=== PATIENT | male | born 1990 | race Caucasian/White ===

== ENCOUNTER 2019-04-29 12:31 | Inpatient (IN) | payer OTHER ==
[2019-04-29 18:00] VITALS: BMI 21.1
--- NOTE | 2019-04-29 19:59 | HP ---
"CIWA Score - Admission Criteria OASAS Guidelines: Admission for Medically Managed Detox: Requires at least one of the followin. CIWA greater than 12 2. Seizures within the past 24 hours 3. Delirium tremens within the past 24 hours 4. Hallucinations within the past 24 hours 5. Acute intervention needed for co occurring medical disorder 6. Acute intervention needed for co occurring psychiatric disorder 7. Severe withdrawal that cannot be handled at a lower level of care (continued vomiting, continued diarrhea, abnormal vital signs) requiring intravenous medication and/or fluids 8. Admission ROS [facility] Chief Complaint: Patient states here for rehab. Allergies/Adverse Reactions: Allergies Allergy/AdvReac Type Severity Reaction Status Date / Time No Known Allergies Allergy Verified 04/29/19 17:48 History of Present Illness: 28 yo presents post detox @ [facility], for admission to rehab. Hx Anxiolytic use disorder. Was prescribed Klonopin at age 17. Started illegal Xanax use a few months ago. Last used 2 weekas ago. Denies alcohol use. Heroin use began at age 23. IVDU. Currently on [facility]. Current dose: Methadone 115 mg PO Daily. Last medicated today. PPD @ [facility] - please call and obtain date and results. Nicotine use currently via Vaping. Use to smoke 1/2 PPD before switchinh to vaping. PMHx: Epilepsy (Non-drug related last seizure -years ago) - not on meds; Asperger's Syndrome MHHx: Anxiety. Insomnia (Rx'd w/ Remeron). Denies depression. Denies thoughts of harming self or others. Patient Name: Juan Carlos Tao Date: 1990 Address: [place] [address] Sex: Male Rx Written Rx Dispensed Drug Quantity Days Supply Prescriber Name 04/20/2019 04/21/2019 chlordiazepoxide 25 mg capsule 8 2 Ross Nevarez Patient Name: Juan Carlos Tao Date: 1990 Address: [address] [place], [place] [id number] [address] Sex: Male Rx Written Rx Dispensed Drug Quantity Days Supply Prescriber Name 12/22/2018 12/22/2018 oxycodone-acetaminophen 5-325 mg tablet 15 3 [facility] 06/26/2018 06/29/2018 clonazepam 1 mg tablet 5 5 Rachael Ramey MD Patient Name: Juan Carlos Tao Date: 1990 Address: [place] [address] Sex: Male Rx Written Rx Dispensed Drug Quantity Days Supply Prescriber Name 09/22/2018 09/22/2018 clonazepam 2 mg tablet 3 1 Silvino Whitehead MD Patient Name: Juan Carlos Tao Date: 1990 Address: [address] [place] [address] Sex: Male Rx Written Rx Dispensed Drug Quantity Days Supply Prescriber Name 09/14/2018 09/14/2018 clonazepam 1 mg tablet 30 30 Saker, Armaan, T 08/16/2018 08/16/2018 clonazepam 1 mg tablet 30 30 Saker, Armaan, T 07/14/2018 07/14/2018 clonazepam 1 mg tablet 30 30 Saker, Armaan, T 06/14/2018 06/14/2018 clonazepam 1 mg tablet 30 30 Saker, Armaan, T 05/17/2018 05/17/2018 clonazepam 1 mg tablet 30 30 Saker, Armaan, T 05/03/2018 05/03/2018 clonazepam 1 mg tablet 14 14 Saker, Armaan, T Search Terms: Juan Carlos Tao, 1990 Search Date: 04/29/2019 07:59:17 PM States Searched: [place], [place], [place], [place], [place], [place], [place] The Drug Utilization Report below displays the controlled substance prescriptions, if any, that were dispensed in the indicated state(s). The information displayed on this report is compiled from requests submitted to other states' PMPs, and accurately reflects the information as returned by them. Blank hall indicate data not provided by other state. This report was requested by: Alfreda Mosquera | Reference #: [id number] Exam Limitations: No Limitations - Ebola screening Have you traveled outside of the country in the last 21 days: No Have you had contact with anyone from an Ebola affected area: No Have you been sick,other than usual withdrawal symptoms: No (Denies recent exposure to measles) Do you have a fever: No - Review of Systems Constitutional: Changes in sleep (Difficulty falling and staying asleep) EENT: reports: Blurred Vision, Dental Problems (No teeth. Chews and swallow ok.) Respiratory: reports: No Symptoms reported Cardiac: reports: No Symptoms Reported GI: reports: Constipated (Last BM - 2 days ago. Occ bright streaks of blood.) : reports: No Symptoms Reported Musculoskeletal: reports: No Symptoms Reported Integumentary: reports: No Symptoms Reported Neuro: reports: Tremors (Mild) Endocrine: reports: Increased Thirst Hematology: reports: No Symptoms Reported Psychiatric: reports: Judgement Intact, Mood/Affect Appropiate, Orientated x3, Anxious Patient History - PPD History Previous Implant?: Yes Documented Results: Negative w/proof Implanted On Prior R Admission?: No PPD to be Administered?: No - Smoking Cessation Smoking history: Current every day smoker Have you smoked in the past 12 months: Yes Aproximately how many cigarettes per day: 10 (Vapes - unsure exact amount) Hx Chewing Tobacco Use: No Initiated information on smoking cessation: Yes 'Breaking Loose' booklet given: 04/29/19 - Substance & Tx. History Hx Alcohol Use: No Hx Substance Use: Yes Substance Use Type: Heroin, Tranquilizers (Benzo) Hx Substance Use Treatment: Yes (detox, rehab, Current MMTP) - Substances abused Alprazolam (Xanax) Substance route: Oral Frequency: Daily Amount used: 1-2mg Age of first use: 17 Date of last use: 04/15/19 Benzodiazepine (Klonopin) Frequency: Daily Date of last use: 12/04/15 Admission Physical Exam S - Vital Signs Vital Signs: Vital Signs - 24 hr 04/29/19 17:50 Temperature 97.8 F Pulse Rate 82 Respiratory 16 Rate Blood Pressure 138/91 - Physical General Appearance: Yes: Nourished HEENTM: Yes: EOMI (Jerking movement of eyes upon lateral gaze), Hearing grossly Normal, Normocephalic, Normal Voice, MIGUELANGEL (Pupils = 4 mm), Pharynx Normal Respiratory: Yes: Lungs Clear (O2 Sat = 99 %), Normal Breath Sounds, No Respiratory Distress Neck: Yes: No masses,lesions,Nodules, Supple Breast: Yes: Breast Exam Deferred Cardiology: Yes: Regular Rhythm, S1, S2 Abdominal: Yes: Non Tender, Flat, Soft, Increased Bowel Sounds Genitourinary: Yes: Within Normal Limits Back: Yes: Normal Inspection Musculoskeletal: Yes: full range of Motion, Gait Steady Extremities: Yes: Normal Capillary Refill, Tremors (Mild [id number] w/ arms extended) Neurological: Yes: early childhood director II-XII NML intact (Jerking movement of eyes upon lateral gaze), Fully Oriented, Alert, Motor Strength 5/5, Normal Response Integumentary: Yes: Normal Color, Dry, Warm, Track Zarate (Old track zarate antcubital area) Lymphatic: Yes: Within Normal Limits - Diagnostic (1) 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 Current Visit: Yes Status: Acute (2) Nicotine dependence, uncomplicated Current Visit: Yes Status: Chronic Qualifiers: Nicotine product type: other Qualified Code(s): F17.290 - Nicotine dependence, other tobacco product, uncomplicated Comment: Vapes (3) Methadone maintenance therapy patient Current Visit: Yes Status: Chronic (4) Nystagmus Current Visit: Yes Status: Acute Cleared for Admission [facility] - Detox or Rehab Claeared for Rehab Admission: Yes Breathalyzer - Breathalyzer Breathalyzer: 0 Urine Drug Screen - Test Device Lot number: [id number] Expiration date: 02/02/20 - Control Is test valid?: Yes - Results Drug screen NEGATIVE: No (TCA) Urine drug screen results: MTD-Methadone, BZO-Benzodiazepines Inpatient Rehab Admission - Rehab Decision to Admit Inpatient rehab admission?: Yes - Initial Determination Are CD services needed?: Yes Free of communicable disease: Yes Not in need of hospitalization: Yes - Rehab Admission Criteria Previous failed treatment: Yes Poor recovery environment: Yes Comorbidities: Yes Lacks judgement: No Patient is meeting Inpatient Rehab admission criteria:: Yes"
[2019-04-29] MEDS ORDERED: LOPERAMIDE HCL 2 MG CAPSULE PO PRN (20:17)
[2019-04-29] MEDS ORDERED: guaiFENesin 200 MG/10 ML 10 ML UNIT-DOSE CUPS PO PRN (20:17)
[2019-04-29] MEDS ORDERED: P-EPHED 60MG/TRIPROLIDI 2.5MG TABLET PO PRN (20:17)
[2019-04-29] MEDS ORDERED: MAG HYDROX/AL HYDROX/SIMETH 30 ML UNIT-DOSE CUP PO PRN (20:17)
[2019-04-29] MEDS ORDERED: ACETAMINOPHEN 325 MG TABLET (FP) PO PRN (20:17)
[2019-04-29] MEDS ORDERED: MENTHOL/PHENOL 1 EACH UD MM PRN (20:17)
[2019-04-29] MEDS ORDERED: MAGNESIUM CITRATE 300 ML BOTTLE PO PRN (20:17)
[2019-04-29] MEDS ORDERED: MAGNESIUM HYDROX 2400MG/30ML ORAL SUSPENSION 30 ML CUP PO PRN (20:17)
[2019-04-29] MEDS: MELATONIN 5 MG TABLETS PO PRN (21:38)
[2019-04-29] MEDS: DOCUSATE SODIUM 100 MG CAPSULE (FP) PO SCH (21:38)
[2019-04-29] MEDS: hydrOXYzine PAMOATE 50 MG CAPSULE (FP) PO PRN (21:38)
[2019-04-29] MEDS: NICOTINE POLACRILEX 2 MG GUM BC PRN (21:39)
[2019-04-29] MEDS: THIAMINE HCL 100 MG TABLET (FP) PO SCH (21:39)
[2019-04-30] MEDS: NICOTINE POLACRILEX 2 MG GUM BC PRN ×2 (06:36→17:33)
[2019-04-30] MEDS: PRENATAL VITAMINS W/ FOLIC ACID TABLET (FP) PO SCH (09:50)
[2019-04-30] MEDS: NICOTINE 21 MG/24 HOURS TOPICAL PATCH TD SCH (09:50)
[2019-04-30 10:37] LABS: PH,URINE 6.5 (5.0-8.0); URINE APPEARANCE CLEAR; URINE BILIRUBIN NEGATIVE (NEGATIVE); URINE COLOR YELLOW; URINE GLUCOSE (UA) NEGATIVE (NEGATIVE); URINE KETONE NEGATIVE (NEGATIVE); URINE LEUK ESTERASE NEGATIVE (NEGATIVE); URINE NITRITE NEGATIVE (NEGATIVE); URINE PROTEIN NEGATIVE (NEGATIVE)
[2019-04-30] MEDS ORDERED: METHADONE HCL 10 MG TABLET PO SCH (11:15)
[2019-04-30] MEDS ORDERED: METHADONE HCL 10 MG TABLET ONE (11:16)
[2019-04-30] MEDS ORDERED: METHADONE HCL 40 MG DISPERSABLE TABLET ONE (11:16)
[2019-04-30] MEDS ORDERED: METHADONE HCL 5 MG TABLET ONE (11:16)
[2019-04-30] MEDS: METHADONE 80 MG, METHADONE 30 MG, METHADONE 5 MG PO SCH (11:17)
[2019-04-30 13:09] LABS: ALBUMIN 3.8 g/dl (3.4-5.0); BILIRUBIN,TOTAL 0.3 mg/dL (0.2-1); BLOOD UREA NITROGEN 16.2 mg/dL (7-18); CALCIUM 9.4 mg/dL (8.5-10.1); CREATININE 0.8 mg/dL (0.55-1.3); POTASSIUM 4.6 mmol/L (3.5-5.1); TOT PROT 7.4 g/dl (6.4-8.2)
[2019-04-30 13:10] LABS: HEMATOCRIT 40.5 % (35.4-49); MCH 26.8 pg (25.7-33.7); MCHC 34.4 g/dl (32.0-35.9); MEAN CELL VOLUME 77.9 fl (80-96); MEAN PLT VOLUME 8.1 fl (7.5-11.1); PLATELET COUNT 204 K/MM3 (134-434); RBC 5.21 M/mm3 (4.00-5.60); WHITE BLOOD COUNT 5.1 K/mm3 (4.0-10.0)
--- NOTE | 2019-04-30 19:06 | CONSULT ---
[facility] Psychiatric Consult - Data Date of interview: 04/30/19 Admission source: [facility] Identifying data: Direct admission to [address] and first visit to [facility] for this 28 y/o male, referred by [facility] for rehabilitative care to addressed substance use disorders (opioid, benzodiazepine) co-morbid with Autism spectrum disorder. Paient is single, no dependents, domiciled and self-employed (computer repair). Substance Abuse History: Confirmed by patient. Details in current [facility] report as follows : Smoking history: Current every day smoker. Have you smoked in the past 12 months: Yes. Aproximately how many cigarettes per day: 10 (Vapes - unsure exact amount). Hx Chewing Tobacco Use: No. Initiated information on smoking cessation: Yes. 'Breaking Loose' booklet given: 04/29/19. - Substance & Tx. History. Hx Alcohol Use: No. Hx Substance Use: Yes. Substance Use Type : Heroin, Tranquilizers (Benzo). Hx Substance Use Treatment: Yes (detox, rehab , Current MMTP). - Substances abused. Alprazolam (Xanax). Substance route : Oral. Frequency: Daily. Amount used: 1-2mg. Age of first use: 17. Date of last use: 04/15/19. Benzodiazepine (Klonopin). Frequency: Daily. Date of last use: 12/04/15 Medical History: Epilepsy. Psychiatric History: Patient denies history of psychiatric hospitalizations, OPD care or suicide attempts. Mr Tao has been diagnosed with Asperger Disorder. Patient indicates that remeron 15 mg (dispensed at [facility]) has been effective and he wishes to resume that drug in this service. Physical/Sexual Abuse/Trauma History: Patient denies. Additional Comment: Urine drug screen results: MTD-Methadone, BZO- Benzodiazepines. Noted. 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 - Initial Treatment Plan Initial Treatment Plan: Psychoeducation. Sleep hygiene. NA meetings. Motivational counseling. Remeron 15 mg po hs. Side effects/benefits discussed with patient. Verbal consent given to MD. Support. Observation.
[2019-04-30] MEDS: MELATONIN 5 MG TABLETS PO PRN (20:57)
[2019-04-30] MEDS: THIAMINE HCL 100 MG TABLET (FP) PO SCH (21:09)
[2019-04-30] MEDS: DOCUSATE SODIUM 100 MG CAPSULE (FP) PO SCH (21:09)
[2019-04-30] MEDS: MIRTAZAPINE 15 MG TABLET (FP) PO SCH (21:09)
[2019-05-01] MEDS ORDERED: METHADONE HCL 5 MG TABLET ONE (05:38)
[2019-05-01] MEDS ORDERED: METHADONE HCL 40 MG DISPERSABLE TABLET ONE (05:39)
[2019-05-01] MEDS ORDERED: METHADONE HCL 10 MG TABLET ONE (05:39)
[2019-05-01] MEDS: METHADONE 80 MG, METHADONE 30 MG, METHADONE 5 MG PO SCH (06:14)
[2019-05-01] MEDS: NICOTINE POLACRILEX 2 MG GUM BC PRN ×2 (06:17→09:58)
[2019-05-01] MEDS: PRENATAL VITAMINS W/ FOLIC ACID TABLET (FP) PO SCH (09:57)
[2019-05-01] MEDS: NICOTINE 21 MG/24 HOURS TOPICAL PATCH TD SCH (09:58)
--- NOTE | 2019-05-01 10:53 | EKG ---
Test Reason : Blood Pressure : / mmHG Vent. Rate : 068 BPM Atrial Rate : 068 BPM P-R Int : 130 ms QRS Dur : 090 ms QT Int : 438 ms P-R-T Axes : 053 068 050 degrees QTc Int : 465 ms NORMAL SINUS RHYTHM NORMAL ECG NO PREVIOUS ECGS AVAILABLE Confirmed by SHOSHANA CARNES MD ([id number]) on 05/01/2019 10:53:26 AM Referred By: Confirmed By:SHOSHANA CARNES MD
[2019-05-01] MEDS: IBUPROFEN 400 MG TABLET (FP) PO PRN (12:56)
[2019-05-01] MEDS: DOCUSATE SODIUM 100 MG CAPSULE (FP) PO SCH (21:01)
[2019-05-01] MEDS: MIRTAZAPINE 15 MG TABLET (FP) PO SCH (21:01)
[2019-05-01] MEDS: THIAMINE HCL 100 MG TABLET (FP) PO SCH (21:01)
[2019-05-01] MEDS: MELATONIN 5 MG TABLETS PO PRN (21:01)
[2019-05-02] MEDS ORDERED: METHADONE HCL 5 MG TABLET ONE (06:01)
[2019-05-02] MEDS ORDERED: METHADONE HCL 40 MG DISPERSABLE TABLET ONE (06:02)
[2019-05-02] MEDS ORDERED: METHADONE HCL 10 MG TABLET ONE (06:02)
[2019-05-02] MEDS: METHADONE 80 MG, METHADONE 30 MG, METHADONE 5 MG PO SCH (06:12)
[2019-05-02] MEDS: PRENATAL VITAMINS W/ FOLIC ACID TABLET (FP) PO SCH (10:01)
[2019-05-02] MEDS: NICOTINE 21 MG/24 HOURS TOPICAL PATCH TD SCH (10:01)
[2019-05-02] MEDS: THIAMINE HCL 100 MG TABLET (FP) PO SCH (21:21)
[2019-05-02] MEDS: MIRTAZAPINE 15 MG TABLET (FP) PO SCH (21:21)
[2019-05-02] MEDS: MELATONIN 5 MG TABLETS PO PRN (21:21)
[2019-05-02] MEDS: DOCUSATE SODIUM 100 MG CAPSULE (FP) PO SCH (21:21)
[2019-05-03] MEDS ORDERED: METHADONE HCL 5 MG TABLET ONE (05:55)
[2019-05-03] MEDS ORDERED: METHADONE HCL 40 MG DISPERSABLE TABLET ONE (05:56)
[2019-05-03] MEDS ORDERED: METHADONE HCL 10 MG TABLET ONE (05:56)
[2019-05-03] MEDS: METHADONE 80 MG, METHADONE 30 MG, METHADONE 5 MG PO SCH (06:15)
[2019-05-03] MEDS: NICOTINE POLACRILEX 2 MG GUM BC PRN ×4 (07:06→21:18)
[2019-05-03] MEDS: NICOTINE 21 MG/24 HOURS TOPICAL PATCH TD SCH (10:11)
[2019-05-03] MEDS: PRENATAL VITAMINS W/ FOLIC ACID TABLET (FP) PO SCH (10:11)
[2019-05-03] MEDS: DOCUSATE SODIUM 100 MG CAPSULE (FP) PO SCH (21:17)
[2019-05-03] MEDS: MIRTAZAPINE 15 MG TABLET (FP) PO SCH (21:17)
[2019-05-03] MEDS: hydrOXYzine PAMOATE 50 MG CAPSULE (FP) PO PRN (21:17)
[2019-05-03] MEDS: THIAMINE HCL 100 MG TABLET (FP) PO SCH (21:17)
[2019-05-04] MEDS ORDERED: METHADONE HCL 5 MG TABLET ONE (05:54)
[2019-05-04] MEDS ORDERED: METHADONE HCL 10 MG TABLET ONE (05:54)
[2019-05-04] MEDS ORDERED: METHADONE HCL 40 MG DISPERSABLE TABLET ONE (05:55)
[2019-05-04] MEDS: METHADONE 80 MG, METHADONE 30 MG, METHADONE 5 MG PO SCH (06:55)
[2019-05-04] MEDS: NICOTINE POLACRILEX 2 MG GUM BC PRN (06:59)
[2019-05-04] MEDS: NICOTINE 21 MG/24 HOURS TOPICAL PATCH TD SCH (09:48)
[2019-05-04] MEDS: PRENATAL VITAMINS W/ FOLIC ACID TABLET (FP) PO SCH (09:49)
[2019-05-04] MEDS: IBUPROFEN 400 MG TABLET (FP) PO PRN (12:48)
[2019-05-04] MEDS: THIAMINE HCL 100 MG TABLET (FP) PO SCH (21:12)
[2019-05-04] MEDS: MIRTAZAPINE 15 MG TABLET (FP) PO SCH (21:12)
[2019-05-04] MEDS: DOCUSATE SODIUM 100 MG CAPSULE (FP) PO SCH (21:12)
[2019-05-04] MEDS: hydrOXYzine PAMOATE 50 MG CAPSULE (FP) PO PRN (21:13)
[2019-05-04] MEDS: MELATONIN 5 MG TABLETS PO PRN (21:13)
[2019-05-05] MEDS ORDERED: METHADONE HCL 5 MG TABLET ONE (05:41)
[2019-05-05] MEDS ORDERED: METHADONE HCL 40 MG DISPERSABLE TABLET ONE (05:42)
[2019-05-05] MEDS ORDERED: METHADONE HCL 10 MG TABLET ONE (05:42)
[2019-05-05] MEDS: METHADONE 80 MG, METHADONE 30 MG, METHADONE 5 MG PO SCH (07:06)
[2019-05-05] MEDS: NICOTINE 14 MG/24 HOURS TOPICAL PATCH TD SCH (10:10)
[2019-05-05] MEDS: PRENATAL VITAMINS W/ FOLIC ACID TABLET (FP) PO SCH (10:11)
[2019-05-05] MEDS: NICOTINE POLACRILEX 2 MG GUM BC PRN ×2 (13:00→18:14)
[2019-05-05] MEDS: MIRTAZAPINE 15 MG TABLET (FP) PO SCH (21:05)
[2019-05-05] MEDS: DOCUSATE SODIUM 100 MG CAPSULE (FP) PO SCH (21:05)
[2019-05-05] MEDS: hydrOXYzine PAMOATE 50 MG CAPSULE (FP) PO PRN (21:06)
[2019-05-05] MEDS: MELATONIN 5 MG TABLETS PO PRN (21:06)
[2019-05-05] MEDS: THIAMINE HCL 100 MG TABLET (FP) PO SCH (21:06)
[2019-05-06] MEDS ORDERED: METHADONE HCL 5 MG TABLET ONE (05:44)
[2019-05-06] MEDS ORDERED: METHADONE HCL 10 MG TABLET ONE (05:44)
[2019-05-06] MEDS ORDERED: METHADONE HCL 40 MG DISPERSABLE TABLET ONE (05:45)
[2019-05-06] MEDS: METHADONE 80 MG, METHADONE 30 MG, METHADONE 5 MG PO SCH (06:09)
[2019-05-06] MEDS: NICOTINE POLACRILEX 2 MG GUM BC PRN ×2 (06:13→21:06)
[2019-05-06] MEDS: NICOTINE 14 MG/24 HOURS TOPICAL PATCH TD SCH (10:06)
[2019-05-06] MEDS: PRENATAL VITAMINS W/ FOLIC ACID TABLET (FP) PO SCH (10:06)
[2019-05-06] MEDS: DOCUSATE SODIUM 100 MG CAPSULE (FP) PO SCH (21:02)
[2019-05-06] MEDS: THIAMINE HCL 100 MG TABLET (FP) PO SCH (21:03)
[2019-05-06] MEDS: MIRTAZAPINE 15 MG TABLET (FP) PO SCH (21:03)
[2019-05-06] MEDS: hydrOXYzine PAMOATE 50 MG CAPSULE (FP) PO PRN (21:05)
[2019-05-06] MEDS: MELATONIN 5 MG TABLETS PO PRN (21:05)
[2019-05-07] MEDS ORDERED: METHADONE HCL 10 MG TABLET ONE (06:02)
[2019-05-07] MEDS ORDERED: METHADONE HCL 5 MG TABLET ONE (06:02)
[2019-05-07] MEDS ORDERED: METHADONE HCL 40 MG DISPERSABLE TABLET ONE (06:03)
[2019-05-07] MEDS: METHADONE 80 MG, METHADONE 30 MG, METHADONE 5 MG PO SCH (06:55)
[2019-05-07] MEDS: NICOTINE POLACRILEX 2 MG GUM BC PRN ×2 (06:57→10:03)
[2019-05-07] MEDS: PRENATAL VITAMINS W/ FOLIC ACID TABLET (FP) PO SCH (10:02)
[2019-05-07] MEDS: NICOTINE 14 MG/24 HOURS TOPICAL PATCH TD SCH (10:02)
[2019-05-07] MEDS: DOCUSATE SODIUM 100 MG CAPSULE (FP) PO SCH (21:01)
[2019-05-07] MEDS: MELATONIN 5 MG TABLETS PO PRN (21:01)
[2019-05-07] MEDS: MIRTAZAPINE 15 MG TABLET (FP) PO SCH (21:02)
[2019-05-07] MEDS: THIAMINE HCL 100 MG TABLET (FP) PO SCH (21:02)
[2019-05-08] MEDS ORDERED: METHADONE HCL 5 MG TABLET ONE (05:55)
[2019-05-08] MEDS ORDERED: METHADONE HCL 40 MG DISPERSABLE TABLET ONE (05:55)
[2019-05-08] MEDS ORDERED: METHADONE HCL 10 MG TABLET ONE (05:55)
[2019-05-08] MEDS ORDERED: METHADONE 80 MG, METHADONE 30 MG, METHADONE 5 MG PO SCH (06:00)
[2019-05-08 06:53] VITALS: BP 129/91; PULSE 75; TEMP 97.9
[2019-05-08] MEDS: NICOTINE 14 MG/24 HOURS TOPICAL PATCH TD SCH (10:05)
[2019-05-08] MEDS: PRENATAL VITAMINS W/ FOLIC ACID TABLET (FP) PO SCH (10:05)
--- NOTE | 2019-05-08 14:44 | PN ---
S Progress Note Note: Psychiatric nurse practitioner note: Patient leaving after spending 10 days on rehab. A 30 day prescription of remeron 15mg will be electronically sent to [facility] pharmacy @ [address] [place] [id number].
--- NOTE | 2019-05-08 14:48 | PN ---
[facility] Progress Note Note: patient would like to leave,stated he is feeling much better,stable for discharge,follow up with senior living residential as arrangement, and [facility] Vital Signs Temperature 97.9 F 05/08/19 06:52 Pulse Rate 75 05/08/19 06:52 Respiratory Rate 16 05/08/19 06:52 Blood Pressure 129/91 05/08/19 06:52 O2 Sat by Pulse Oximetry (%) left the unit in stable condition
--- NOTE | 2019-05-08 16:39 | PN ---
[facility] Progress Note Note: this is the discharge note for rehab date of admission 04/29/19 date of discharge 05/08/19 diagnosis heroin dependence nicotine dependence methadone maintenance therapy patient Vital Signs Temperature 97.9 F 05/08/19 06:52 Pulse Rate 75 05/08/19 06:52 Respiratory Rate 16 05/08/19 06:52 Blood Pressure 129/91 05/08/19 06:52 O2 Sat by Pulse Oximetry (%) Laboratory Last Values WBC 5.1 K/mm3 (4.0-10.0) 04/30/19 10:40 RBC 5.21 M/mm3 (4.00-5.60) 04/30/19 10:40 Hgb 14.0 GM/dL (11.7-16.9) 04/30/19 10:40 Hct 40.5 % (35.4-49) 04/30/19 10:40 MCV 77.9 fl (80-96) L 04/30/19 10:40 MCH 26.8 pg (25.7-33.7) 04/30/19 10:40 MCHC 34.4 g/dl (32.0-35.9) 04/30/19 10:40 RDW 15.0 % (11.9-15.9) 04/30/19 10:40 Plt Count 204 K/MM3 (134-434) 04/30/19 10:40 MPV 8.1 fl (7.5-11.1) 04/30/19 10:40 Sodium 140 mmol/L (136-145) 04/30/19 10:40 Potassium 4.6 mmol/L (3.5-5.1) 04/30/19 10:40 Chloride 103 mmol/L (98-107) 04/30/19 10:40 Carbon Dioxide 33 mmol/L (21-32) H 04/30/19 10:40 Anion Gap 5 MMOL/L (8-16) L 04/30/19 10:40 BUN 16.2 mg/dL (7-18) 04/30/19 10:40 Creatinine 0.8 mg/dL (0.55-1.3) 04/30/19 10:40 Est GFR (CKD-EPI)AfAm 142.89 04/30/19 10:40 Est GFR (CKD-EPI)NonAf 123.29 04/30/19 10:40 Random Glucose 86 mg/dL (74-106) 04/30/19 10:40 Calcium 9.4 mg/dL (8.5-10.1) 04/30/19 10:40 Total Bilirubin 0.3 mg/dL (0.2-1) 04/30/19 10:40 AST 37 U/L (15-37) 04/30/19 10:40 ALT 61 U/L (13-61) 04/30/19 10:40 Alkaline Phosphatase 106 U/L (45-117) 04/30/19 10:40 Total Protein 7.4 g/dl (6.4-8.2) 04/30/19 10:40 Albumin 3.8 g/dl (3.4-5.0) 04/30/19 10:40 Urine Color Yellow 04/30/19 08:50 Urine Appearance Clear 04/30/19 08:50 Urine pH 6.5 (5.0-8.0) 04/30/19 08:50 Ur Specific [place] 1.025 (1.010-1.035) 04/30/19 08:50 Urine Protein Negative (NEGATIVE) 04/30/19 08:50 Urine Glucose (UA) Negative (NEGATIVE) 04/30/19 08:50 Urine Ketones Negative (NEGATIVE) 04/30/19 08:50 Urine Blood Negative (NEGATIVE) 04/30/19 08:50 Urine Nitrite Negative (NEGATIVE) 04/30/19 08:50 Urine Bilirubin Negative (NEGATIVE) 04/30/19 08:50 Urine Urobilinogen 1.0 mg/dL (0.2-1.0) 04/30/19 08:50 Ur Leukocyte Esterase Negative (NEGATIVE) 04/30/19 08:50 RPR Titer Nonreactive (NONREACTIVE) 04/30/19 10:40 TB (QFT) Incubation (.) 05/03/19 08:05 TB Test (QFT) Nil 0.13 IU/mL (.) 05/03/19 08:05 TB Test (QFT) Mitogen 9.07 IU/mL (.) 05/03/19 08:05 TB Test (QFT) Antigen 0.24 IU/mL (.) 05/03/19 08:05 TB Test (QFT) Negative (Negative) 05/03/19 08:05 TB Positive Criteria (.) 05/03/19 08:05 discharge in good contion,follow up with after care program as arrangement and mmtp clinic
== END 2019-05-08 16:45 | disposition home or self-care (01) | DRG 772 ==
LOC: YASAS 12:31 → Y5N 19:49
PROVIDERS: ADMIT Neuromusculoskeletal Medicine & OMM; ATTEND Neuromusculoskeletal Medicine & OMM
PROC: HZ42ZZZ Group Counseling for Substance Abuse Treatment, Cognitive-Behavioral (ICD-10-PCS; principal; 2019-04-29)
DX: F11.20 Opioid dependence, uncomplicated (principal); F13.21 Sedative, hypnotic or anxiolytic dependence, in remission; F17.210 Nicotine dependence, cigarettes, uncomplicated; F84.0 Autistic disorder; G47.00 Insomnia, unspecified; G40.909 Epilepsy, unspecified, not intractable, without status epilepticus
CPT/HCPCS: 36415; 80053; 81003; 85027; 86480; 86593; 93005; 93010

== ENCOUNTER 2020-06-26 14:34 | Inpatient (IN) | payer OTHER ==
--- NOTE | 2020-06-26 15:00 | BHS.RME ---
Substance Use & Tx History - Substance Use History Alcohol Substance amount: 1 six pack beers Frequency of use: Daily Substance route: Oral Date of Last Use: 06/26/20 (started age 20) Heroin Substance amount: 2 bags Frequency of use: Daily Substance route: Injection (ex: intravenous or skin popping) Date of Last Use: 06/25/20 (started age 25) Nicotine Substance amount: 1/2 pack Frequency of use: Daily Substance route: Smoking Date of Last Use: 06/26/20 (started age 20) Physical/Psych/Mental Status - Behavior General Behavior: Increased activity (restlessness, agitation) Eye Contact: Normal - Cooperativeness Cooperativeness: Cooperative - Thinking Thought Processes: Tight, Logical, Goal Directed - Physical Health Problems Is patient presently having any pain?: No Does patient presently have any injuries (include location): No Does patient currently have a fever: No Is patient : No CIWA Nausea/Vomitin Muscle Tremors: 4-Moderate,w/Arms Extend Anxiety: 4-Mod. Anxious/Guarded Agitation: 4-Moderately Restless Paroxysmal Sweats: 1-Minimal Palms Moist Orientation: 1-Uncertain about Date Tacttile Disturbances: 0-None Auditory Disturbances: 0-None Visual Disturbances: 0-None Headache: 2-Mild CIWA-Ar Total Score: 18
--- NOTE | 2020-06-26 16:27 | HP ---
CIWA Score Nausea/Vomitin-Mild Nausea/No Vomiting Muscle Tremors: 4-Moderate,w/Arms Extend Anxiety: 4-Mod. Anxious/Guarded Agitation: 1-Slight > Activity Paroxysmal Sweats: No Perspiration Orientation: 0-Oriented Tacttile Disturbances: 0-None Auditory Disturbances: 0-None Visual Disturbances: 0-None Headache: 2-Mild CIWA-Ar Total Score: 12 - Admission Criteria OASAS Guidelines: Admission for Medically Managed Detox: Requires at least one of the followin. CIWA greater than 12 2. Seizures within the past 24 hours 3. Delirium tremens within the past 24 hours 4. Hallucinations within the past 24 hours 5. Acute intervention needed for co occurring medical disorder 6. Acute intervention needed for co occurring psychiatric disorder 7. Severe withdrawal that cannot be handled at a lower level of care (continued vomiting, continued diarrhea, abnormal vital signs) requiring intravenous medication and/or fluids 8. Admitting History and Physical - Smoking History Smoking history: Current every day smoker Have you smoked in the past 12 months: Yes Aproximately how many cigarettes per day: 10 (Vapes - unsure exact amount) - Alcohol/Substance Use Hx Alcohol Use: No Admission ROS [facility] Allergies/Adverse Reactions: Allergies Allergy/AdvReac Type Severity Reaction Status Date / Time No Known Allergies Allergy Verified 06/26/20 18:10 History of Present Illness: 29 y.o. male requesting detox from alcohol use , reports 6-pk cider every other day , sometimes every day , w/ anxiety if not drinking , takes rx benzo for this , has not run out of rx benzo . Referred by methadone clinic . Current daily dose 125 mg [facility] , LDM today . cocaine : 2 DAYS AGO iv IN [facility] heroin : 1 bag iv yesterday , denies od , denies abscess , first age of use 20 , in MMTP x 4 years tobacco : 1/2 ppd PMHX : seizure d/o since 2014 , tried Keppra , dilantin had adverse effects ( keppra- mood change , dilantin - could not function ) PSych : Asperger's , denies SI / HI PSHX : teeth 2/2 bruxism Others' Prescriptions Patient Name: Juan Carlos Tao Date: 1990 Address: [address] [place] [address] [id number] [place] [id number] Sex: Male Rx Written Rx Dispensed Drug Quantity Days Supply Prescriber Name Payment Method Dispenser 06/25/2020 06/25/2020 alprazolam 2 mg tablet 30 15 Laruelle, Grayson [facility] #[id number] 06/07/2020 06/20/2020 dextroamp-amphetamin 20 mg tab 30 30 Laruelle, Grayson FIGUEROA [facility] #[id number] 06/08/2020 06/08/2020 dextroamp-amphetamin 30 mg tab 15 15 Laruelle, Grayson FIGUEROA [facility] #[id number] 06/07/2020 06/07/2020 temazepam 30 mg capsule 30 30 Laruelle, Grayson [employer] #[id number] 06/07/2020 06/07/2020 lorazepam 2 mg tablet 60 30 Laruelle, Grayson [employer] #[id number] 05/24/2020 05/24/2020 dextroamp-amphetamin 20 mg tab 30 30 Laruelle, Grayson FIGUEROA [facility] #[id number] 05/21/2020 05/21/2020 zolpidem tartrate 10 mg tablet 15 15 Laruelle, Grayson [employer] [facility] #[id number] 05/09/2020 05/09/2020 clonazepam 1 mg tablet 60 30 Laruelle, Grayson [employer] [facility] #[id number] 05/08/2020 05/08/2020 temazepam 30 mg capsule 30 30 Laruelle, Grayson [employer] [facility] #[id number] 05/08/2020 05/08/2020 lorazepam 1 mg tablet 60 30 Laruelle, Grayson [employer] #[id number] 04/24/2020 04/26/2020 temazepam 22.5 mg capsule 5 5 Laruelle, Grayson FIGUEROA [facility] #[id number] 04/24/2020 04/24/2020 lorazepam 1 mg tablet 32 16 Laruelle, Grayson [employer] #[id number] * - Drugs marked with an asterisk are compound drugs. If the compound drug is made up of more than one controlled substance, then each controlled substance will be a separate row in the table. Exam Limitations: No Limitations - Review of Systems Constitutional: Loss of Appetite, Unintentional Wgt. Loss (8 lbs) EENT: reports: Other (edentulous) Respiratory: reports: No Symptoms reported Cardiac: reports: No Symptoms Reported GI: reports: Constipated, Nausea, Poor Appetite : reports: No Symptoms Reported Musculoskeletal: reports: Muscle Pain Integumentary: reports: See HPI Neuro: reports: Headache, Seizure, Tremors Endocrine: reports: No Symptoms Reported Hematology: reports: No Symptoms Reported Psychiatric: reports: Orientated x3, Agitated, Anxious Patient History - Patient Medical History Hx Asthma: No Hx Chronic Obstructive Pulmonary Disease (COPD): No Hx Cardiac Disorders: No Hx Hypertension: No Hx Seizures: No Hx Diabetes: No Hx Gastrointestinal Disorders: No Hx Genitourinary Disorders: No Hx Sexually Transmitted Disorders: No Hx Renal Disease (ESRD): No Hx Depression: No Hx Suicide Attempt: No Hx Schizophrenia: No - Patient Surgical History Past Surgical History: No Hx Neurologic Surgery: No Hx Cataract Extraction: No Hx Cardiac Surgery: No Hx Lung Surgery: No Hx Breast Surgery: No Hx Breast Biopsy: No Hx Abdominal Surgery: No Hx Appendectomy: No Hx Cholecystectomy: No Hx Genitourinary Surgery: No Hx Section: No Hx Orthopedic Surgery: No Anesthesia Reaction: No - Smoking Cessation Smoking history: Current every day smoker Have you smoked in the past 12 months: Yes Aproximately how many cigarettes per day: 10 (Vapes - unsure exact amount) Hx Chewing Tobacco Use: No Initiated information on smoking cessation: Yes 'Breaking Loose' booklet given: 06/26/20 - Substances abused Heroin Substance route: Injection Frequency: Daily Amount used: 1 to 2 bags Age of first use: 25 Date of last use: 06/25/20 Alcohol Substance route: Oral Frequency: Daily Amount used: 6 packs of beer Age of first use: 26 Date of last use: 06/26/20 Cocaine Substance route: Injection Frequency: 1-3 times last 30 days Amount used: 10 dollars Age of first use: 28 Date of last use: 06/24/20 Admission Physical Exam S - Physical General Appearance: Yes: Mild Distress, Tremorous, Anxious HEENTM: Yes: EOMI, Hearing grossly Normal, Normocephalic, Normal Voice, Other (edentulous) Respiratory: Yes: Chest Non-Tender, Lungs Clear, Normal Breath Sounds, No Respiratory Distress, No Accessory Muscle Use Neck: Yes: No masses,lesions,Nodules, Trachea in good position Cardiology: Yes: Regular Rhythm, Regular Rate, S1, S2, Tachycardia Abdominal: Yes: Non Tender (bilateral antecubital), Soft Back: Yes: Normal Inspection Musculoskeletal: Yes: Gait Steady Extremities: Yes: Non-Tender, Tremors Neurological: Yes: Alert, Motor Strength 5/5, Normal Mood/Affect Integumentary: Yes: Warm, Track Zarate - Diagnostic (1) Alcohol use disorder, mild, abuse Current Visit: Yes Status: Chronic (2) Opioid dependence on agonist therapy Current Visit: Yes Status: Chronic (3) Nicotine dependence, uncomplicated Current Visit: Yes Status: Chronic Qualifiers: Nicotine product type: cigarettes Qualified Code(s): F17.210 - Nicotine dependence, cigarettes, uncomplicated Comment: Vapes (4) Cocaine abuse Current Visit: Yes Status: Chronic Breathalyzer - Breathalyzer Breathalyzer: 0 Urine Drug Screen - Test Device Lot number: [id number] Expiration date: 02/02/20 - Control Is test valid?: Yes - Results Drug screen NEGATIVE: No (TCA) Urine drug screen results: MTD-Methadone, BZO-Benzodiazepines Inpatient Rehab Admission - Rehab Decision to Admit Inpatient rehab admission?: No
[2020-06-26] MEDS ORDERED: ACETAMINOPHEN 325 MG TABLET (FP) PO PRN ×2 (16:33)
[2020-06-26] MEDS ORDERED: IBUPROFEN 400 MG TABLET (FP) PO PRN (16:33)
[2020-06-26] MEDS ORDERED: MENTHOL/PHENOL 1 EACH UD MM PRN (16:33)
[2020-06-26] MEDS ORDERED: MAGNESIUM CITRATE 300 ML BOTTLE PO PRN (16:33)
[2020-06-26] MEDS ORDERED: MAGNESIUM HYDROX 2400MG/30ML ORAL SUSPENSION 30 ML CUP PO PRN (16:33)
[2020-06-26] MEDS ORDERED: MAG HYDROX/AL HYDROX/SIMETH 30 ML UNIT-DOSE CUP PO PRN (16:33)
[2020-06-26] MEDS ORDERED: hydrOXYzine PAMOATE 25 MG CAPSULE (FP) PO PRN (16:33)
[2020-06-26] MEDS ORDERED: MELATONIN 5 MG TABLETS PO PRN (16:33)
[2020-06-26] MEDS ORDERED: BISMUTH SUBSALICYLATE 524 MG/30 ML UD PO PRN (16:33)
[2020-06-26 18:18] VITALS: BMI 22.7
[2020-06-26] MEDS: chlordiazePOXIDE HCL 25 MG CAPSULE PO SCH ×2 (19:18→22:28)
[2020-06-26] MEDS: NICOTINE POLACRILEX 2 MG GUM BUC PRN (19:53)
[2020-06-26] MEDS: THIAMINE HCL 100 MG TABLET (FP) PO SCH (22:29)
[2020-06-26] MEDS: DOCUSATE SODIUM 100 MG CAPSULE (FP) PO SCH (22:29)
[2020-06-27] MEDS: chlordiazePOXIDE HCL 25 MG CAPSULE PO SCH ×4 (05:32→21:59)
[2020-06-27] MEDS: NICOTINE POLACRILEX 2 MG GUM BUC PRN ×2 (08:20→20:12)
[2020-06-27] MEDS ORDERED: METHADONE HCL 10 MG TABLET PO ONE (09:20)
--- NOTE | 2020-06-27 09:22 | PN ---
S CIWA - CIWA Score Nausea/Vomitin-Mild Nausea/No Vomiting Muscle Tremors: 2 Anxiety: 4-Mod. Anxious/Guarded Agitation: 1-Slight > Activity Paroxysmal Sweats: No Perspiration Orientation: 0-Oriented Tacttile Disturbances: 0-None Auditory Disturbances: 0-None Visual Disturbances: 2-Mild Sensitivity Headache: 1-Very Mild CIWA-Ar Total Score: 11 BHS Progress Note (SOAP) Subjective: 29 years old male was admitted on 06/26/20 for alcohol withdrawal sx management treating with librium detox regiment mr sow is taking benzo daily through prescription last xanax 2 mg bid on 06/25/20 x 15 days mr sow is taking methadone 125 mg po daily verified today will received methadone 125 mg today and day after tremor report anxious increase vistaril to 50 mg po mr sow will be seen by psychiatrist for further anxiety management Objective: 06/27/20 09:31 Vital Signs - 24 hr 06/26/20 06/26/20 06/26/20 18:12 18:40 19:10 Temperature 97.5 F L 97.5 F L 97.5 F L Pulse Rate 102 H 102 H 78 Respiratory 12 12 18 Rate Blood Pressure 146/89 146/89 127/88 O2 Sat by Pulse 100 Oximetry (%) 06/26/20 06/27/20 06/27/20 20:41 06:29 08:48 Temperature 97.3 F L 97.9 F 96.1 F L Pulse Rate 87 75 80 Respiratory 18 18 16 Rate Blood Pressure 115/69 105/68 104/60 O2 Sat by Pulse 98 100 100 Oximetry (%) 06/27/20 09:31 lab pending Assessment: 06/27/20 09:31 alcohol withdrawal Plan: librium regiment
[2020-06-27] MEDS ORDERED: METHADONE 120 MG, METHADONE 5 MG PO ONE (09:35)
[2020-06-27] MEDS ORDERED: METHADONE HCL 5 MG TABLET ONE (10:16)
[2020-06-27] MEDS ORDERED: METHADONE HCL 40 MG DISPERSABLE TABLET ONE (10:16)
[2020-06-27] MEDS: PRENATAL VITAMINS W/ FOLIC ACID TABLET (FP) PO SCH (10:17)
[2020-06-27] MEDS: NICOTINE 7 MG/24 HOURS TOPICAL PATCH TD SCH (10:17)
[2020-06-27] MEDS: hydrOXYzine PAMOATE 50 MG CAPSULE (FP) PO SCH ×3 (10:17→21:37)
[2020-06-27 10:44] LABS: HEMOGLOBIN 14.6 GM/dL (11.7-16.9); MCH 27.9 pg (25.7-33.7); MCHC 34.1 g/dl (32.0-35.9); MEAN PLT VOLUME 8.8 fl (7.5-11.1); PLATELET COUNT 173 K/MM3 (134-434); RBC 5.24 M/mm3 (4.00-5.60); RDW 14.7 % (11.9-15.9)
[2020-06-27 11:05] LABS: ALBUMIN 3.6 g/dl (3.4-5.0); CALCIUM 9.1 mg/dL (8.5-10.1); POTASSIUM 4.5 mmol/L (3.5-5.1)
[2020-06-27 11:10] LABS: BILIRUBIN,TOTAL 0.7 mg/dL (0.2-1); CREATININE 0.7 mg/dL (0.55-1.3); TOT PROT 6.8 g/dl (6.4-8.2)
[2020-06-27] MEDS ORDERED: PNEUMOC 13-VAL CONJ-DIP CRM/PF 0.5 ML DISP.SYRIN IM ONE (12:00)
[2020-06-27] MEDS ORDERED: PNEUMOCOCCAL 23 VACCINE 0.5 ML VIAL IM ONE (12:00)
[2020-06-27] MEDS: chlordiazePOXIDE HCL 25 MG CAPSULE PO PRN (12:27)
--- NOTE | 2020-06-27 12:32 | CONSULT ---
[facility] Psychiatric Consult - Data Date of interview: 06/27/20 Admission source: [facility] Identifying data: Patient is a 29 year old single male, without children, unemployed, homeless, and is not supported with financial assistance. This is one of multiple admissions for patient. Patient admitted to for alcohol, cocaine, and opiate dependence. Substance Abuse History: Smoking Cessation. Smoking history: Current every day smoker. Have you smoked in the past 12 months: Yes. Aproximately how many cigarettes per day: 10 (Vapes - unsure exact amount). Hx Chewing Tobacco Use: No. Initiated information on smoking cessation: Yes. 'Breaking Loose' booklet given: 06/26/20. - Substances abused. Heroin. Substance route: Injection. Frequency: Daily. Amount used: 1 to 2 bags. Age of first use: 25. Date of last use: 06/25/20. Alcohol. Substance route: Oral. Frequency: Daily. Amount used: 6 packs of beer. Age of first use: 26. Date of last use: 06/26/20. Cocaine. Substance route: Injection. Frequency: 1-3 times last 30 days. Amount used: 10 dollars. Age of first use: 28. Date of last use: 06/24/20 Medical History: Epilepsy. Psychiatric History: Mr. Tao denies history of psychiatric hospitalizations and suicide attempts. Patient states that he is provided with outpatient psychiatric care by Dr. De Anda in [place] and is prescribed Adderall, Ativan, and zoloft 100mg. Reports not taking zoloft for several days. Mr Tao reports a diagnosis of Autism and depression. At present patient reports feeling sad and is experiencing difficulty sleeping. Physical/Sexual Abuse/Trauma History: denies. Mental Status Exam - Mental Status Exam Alert and Oriented to: Time, Place, Person Cognitive Function: Good Patient Appearance: Well Groomed Mood: Hopeful Affect: Appropriate Patient Behavior: Appropriate, Cooperative Speech Pattern: Appropriate Voice Loudness: Normal Thought Process: Goal Oriented Thought Disorder: Not Present Hallucinations: Denies Suicidal Ideation: Denies Homicidal Ideation: Denies Insight/Judgement: Poor Sleep: Poorly Appetite: Fair Muscle strength/Tone: Normal Gait/Station: Normal Psychiatric Findings - Problem List ([place] 1, 2,3) (1) Alcohol use disorder, mild, abuse Current Visit: Yes Status: Acute (2) Cocaine abuse Current Visit: Yes Status: Chronic (3) Nicotine dependence, uncomplicated Current Visit: Yes Status: Chronic Qualifiers: Nicotine product type: cigarettes Qualified Code(s): F17.210 - Nicotine dependence, cigarettes, uncomplicated Comment: Vapes (4) Methadone maintenance therapy patient Current Visit: Yes Status: Chronic (5) Substance-induced sleep disorder Current Visit: Yes Status: Acute (6) Autism spectrum disorder Current Visit: Yes Status: Chronic - Initial Treatment Plan Initial Treatment Plan: Psychoeducation provided. Detoxification in progress. Will order Zoloft 50mg daily + Remeron 15mg HS. Benefits and side effects discussed. Verbal consent given.
[2020-06-27] MEDS: DOCUSATE SODIUM 100 MG CAPSULE (FP) PO SCH (21:36)
[2020-06-27] MEDS: METHOCARBAMOL 500 MG TABLET PO PRN (21:37)
[2020-06-27] MEDS: MIRTAZAPINE 15 MG TABLET (FP) PO SCH (21:37)
[2020-06-27] MEDS: THIAMINE HCL 100 MG TABLET (FP) PO SCH (21:37)
[2020-06-28] MEDS ORDERED: METHADONE HCL 40 MG DISPERSABLE TABLET ONE (04:17)
[2020-06-28] MEDS ORDERED: METHADONE HCL 5 MG TABLET ONE (04:17)
[2020-06-28] MEDS ORDERED: METHADONE HCL 10 MG TABLET PO SCH (06:00)
[2020-06-28] MEDS: chlordiazePOXIDE HCL 25 MG CAPSULE PO SCH ×4 (06:10→22:22)
[2020-06-28] MEDS: hydrOXYzine PAMOATE 50 MG CAPSULE (FP) PO SCH ×4 (06:10→22:22)
[2020-06-28] MEDS: METHADONE 120 MG, METHADONE 5 MG PO SCH (06:11)
[2020-06-28] MEDS: NICOTINE 7 MG/24 HOURS TOPICAL PATCH TD SCH (10:25)
[2020-06-28] MEDS: PRENATAL VITAMINS W/ FOLIC ACID TABLET (FP) PO SCH (10:25)
[2020-06-28] MEDS: SERTRALINE HCL 50 MG TABLET (FP) PO SCH (10:25)
[2020-06-28] MEDS: METHOCARBAMOL 500 MG TABLET PO PRN (10:26)
--- NOTE | 2020-06-28 10:58 | PN ---
S CIWA - CIWA Score Nausea/Vomitin-Mild Nausea/No Vomiting Muscle Tremors: 2 Anxiety: 2 Agitation: 2 Paroxysmal Sweats: 1-Minimal Palms Moist Orientation: 0-Oriented Tacttile Disturbances: 1-Very Mild Itch/Numbness Auditory Disturbances: 0-None Visual Disturbances: 0-None Headache: 2-Mild CIWA-Ar Total Score: 11 S Progress Note (SOAP) Subjective: alert,irritable,anxious,interrupted sleep,aching pain,feel weak,nausea,tremor Objective: 06/28/20 17:01 Vital Signs Temperature 97.7 F 06/28/20 13:12 Pulse Rate 76 06/28/20 13:12 Respiratory Rate 18 06/28/20 13:12 Blood Pressure 112/67 06/28/20 13:12 O2 Sat by Pulse Oximetry (%) 98 06/28/20 13:12 Laboratory Last Values WBC 5.0 K/mm3 (4.0-10.0) 06/27/20 08:00 RBC 5.24 M/mm3 (4.00-5.60) 06/27/20 08:00 Hgb 14.6 GM/dL (11.7-16.9) 06/27/20 08:00 Hct 43.0 % (35.4-49) 06/27/20 08:00 MCV 82.0 fl (80-96) 06/27/20 08:00 MCH 27.9 pg (25.7-33.7) 06/27/20 08:00 MCHC 34.1 g/dl (32.0-35.9) 06/27/20 08:00 RDW 14.7 % (11.9-15.9) 06/27/20 08:00 Plt Count 173 K/MM3 (134-434) 06/27/20 08:00 MPV 8.8 fl (7.5-11.1) 06/27/20 08:00 Sodium 140 mmol/L (136-145) 06/27/20 08:00 Potassium 4.5 mmol/L (3.5-5.1) 06/27/20 08:00 Chloride 105 mmol/L (98-107) 06/27/20 08:00 Carbon Dioxide 32 mmol/L (21-32) 06/27/20 08:00 Anion Gap 3 MMOL/L (8-16) L 06/27/20 08:00 BUN 15.0 mg/dL (7-18) 06/27/20 08:00 Creatinine 0.7 mg/dL (0.55-1.3) 06/27/20 08:00 Est GFR (CKD-EPI)AfAm 149.90 06/27/20 08:00 Est GFR (CKD-EPI)NonAf 129.33 06/27/20 08:00 Random Glucose 85 mg/dL (74-106) 06/27/20 08:00 Calcium 9.1 mg/dL (8.5-10.1) 06/27/20 08:00 Total Bilirubin 0.7 mg/dL (0.2-1) 06/27/20 08:00 AST 19 U/L (15-37) 06/27/20 08:00 ALT 30 U/L (13-61) 06/27/20 08:00 Alkaline Phosphatase 74 U/L (45-117) 06/27/20 08:00 Total Protein 6.8 g/dl (6.4-8.2) 06/27/20 08:00 Albumin 3.6 g/dl (3.4-5.0) 06/27/20 08:00 Syphilis Serology Non-reactive (NONREACTIVE) 06/27/20 08:00 COVID-19 ([facility]) Not detected (Not Detected) 06/26/20 Unknown Assessment: 06/28/20 17:02 withdrawal symptom Plan: continue detox librium regimen,mmtp 125 mgs po daily maintenance,close monitoring
[2020-06-28] MEDS: chlordiazePOXIDE HCL 25 MG CAPSULE PO PRN ×2 (12:01→20:48)
[2020-06-28] MEDS: NICOTINE POLACRILEX 2 MG GUM BUC PRN (12:34)
[2020-06-28] MEDS: THIAMINE HCL 100 MG TABLET (FP) PO SCH (22:22)
[2020-06-28] MEDS: MIRTAZAPINE 15 MG TABLET (FP) PO SCH (22:22)
[2020-06-28] MEDS: DOCUSATE SODIUM 100 MG CAPSULE (FP) PO SCH (22:22)
[2020-06-29] MEDS ORDERED: chlordiazePOXIDE HCL 10 MG CAPSULE PO PRN
[2020-06-29] MEDS ORDERED: METHADONE HCL 40 MG DISPERSABLE TABLET ONE (04:09)
[2020-06-29] MEDS ORDERED: METHADONE HCL 5 MG TABLET ONE (04:09)
[2020-06-29] MEDS: METHADONE 120 MG, METHADONE 5 MG PO SCH (05:11)
[2020-06-29] MEDS: chlordiazePOXIDE HCL 10 MG CAPSULE PO SCH ×4 (05:11→22:33)
[2020-06-29] MEDS: hydrOXYzine PAMOATE 50 MG CAPSULE (FP) PO SCH ×4 (05:12→22:33)
--- NOTE | 2020-06-29 09:03 | PN ---
S CIWA - CIWA Score Nausea/Vomitin-Mild Nausea/No Vomiting Muscle Tremors: 3 Anxiety: 2 Agitation: 2 Paroxysmal Sweats: 1-Minimal Palms Moist Orientation: 0-Oriented Tacttile Disturbances: 1-Very Mild Itch/Numbness Auditory Disturbances: 0-None Visual Disturbances: 0-None Headache: 2-Mild CIWA-Ar Total Score: 12 S Progress Note (SOAP) Subjective: alert,irritable,anxious,interrupted sleep,aching pain,tremor Objective: 06/29/20 16:55 Vital Signs Temperature 96.9 F L 06/29/20 12:38 Pulse Rate 89 06/29/20 12:38 Respiratory Rate 18 06/29/20 12:38 Blood Pressure 106/62 06/29/20 12:38 O2 Sat by Pulse Oximetry (%) 99 06/29/20 12:38 06/29/20 16:56 Laboratory Last Values WBC 5.0 K/mm3 (4.0-10.0) 06/27/20 08:00 RBC 5.24 M/mm3 (4.00-5.60) 06/27/20 08:00 Hgb 14.6 GM/dL (11.7-16.9) 06/27/20 08:00 Hct 43.0 % (35.4-49) 06/27/20 08:00 MCV 82.0 fl (80-96) 06/27/20 08:00 MCH 27.9 pg (25.7-33.7) 06/27/20 08:00 MCHC 34.1 g/dl (32.0-35.9) 06/27/20 08:00 RDW 14.7 % (11.9-15.9) 06/27/20 08:00 Plt Count 173 K/MM3 (134-434) 06/27/20 08:00 MPV 8.8 fl (7.5-11.1) 06/27/20 08:00 Sodium 140 mmol/L (136-145) 06/27/20 08:00 Potassium 4.5 mmol/L (3.5-5.1) 06/27/20 08:00 Chloride 105 mmol/L (98-107) 06/27/20 08:00 Carbon Dioxide 32 mmol/L (21-32) 06/27/20 08:00 Anion Gap 3 MMOL/L (8-16) L 06/27/20 08:00 BUN 15.0 mg/dL (7-18) 06/27/20 08:00 Creatinine 0.7 mg/dL (0.55-1.3) 06/27/20 08:00 Est GFR (CKD-EPI)AfAm 149.90 06/27/20 08:00 Est GFR (CKD-EPI)NonAf 129.33 06/27/20 08:00 Random Glucose 85 mg/dL (74-106) 06/27/20 08:00 Calcium 9.1 mg/dL (8.5-10.1) 06/27/20 08:00 Total Bilirubin 0.7 mg/dL (0.2-1) 06/27/20 08:00 AST 19 U/L (15-37) 06/27/20 08:00 ALT 30 U/L (13-61) 06/27/20 08:00 Alkaline Phosphatase 74 U/L (45-117) 06/27/20 08:00 Total Protein 6.8 g/dl (6.4-8.2) 06/27/20 08:00 Albumin 3.6 g/dl (3.4-5.0) 06/27/20 08:00 Syphilis Serology Non-reactive (NONREACTIVE) 06/27/20 08:00 COVID-19 ([facility]) Not detected (Not Detected) 06/26/20 Unknown Assessment: 06/29/20 16:56 withdrawal symptom Plan: continue detox librium regimen ,adjusted,methadone maintenance 125 mgs po daily
[2020-06-29] MEDS: PRENATAL VITAMINS W/ FOLIC ACID TABLET (FP) PO SCH (10:06)
[2020-06-29] MEDS: NICOTINE 7 MG/24 HOURS TOPICAL PATCH TD SCH (10:06)
[2020-06-29] MEDS: SERTRALINE HCL 50 MG TABLET (FP) PO SCH (10:07)
[2020-06-29] MEDS: chlordiazePOXIDE HCL 25 MG CAPSULE PO PRN ×2 (14:19→19:11)
[2020-06-29] MEDS: NICOTINE POLACRILEX 2 MG GUM BUC PRN (14:20)
[2020-06-29] MEDS: MIRTAZAPINE 15 MG TABLET (FP) PO SCH (22:32)
[2020-06-29] MEDS: DOCUSATE SODIUM 100 MG CAPSULE (FP) PO SCH (22:32)
[2020-06-29] MEDS: THIAMINE HCL 100 MG TABLET (FP) PO SCH (22:32)
[2020-06-30] MEDS ORDERED: METHADONE HCL 40 MG DISPERSABLE TABLET ONE (04:55)
[2020-06-30] MEDS ORDERED: METHADONE HCL 5 MG TABLET ONE (04:55)
[2020-06-30] MEDS ORDERED: chlordiazePOXIDE HCL 10 MG CAPSULE PO SCH (05:00)
[2020-06-30] MEDS: METHADONE 120 MG, METHADONE 5 MG PO SCH (05:32)
[2020-06-30] MEDS: hydrOXYzine PAMOATE 50 MG CAPSULE (FP) PO SCH ×2 (05:32→10:48)
[2020-06-30] MEDS: NICOTINE POLACRILEX 2 MG GUM BUC PRN (05:34)
[2020-06-30 09:45] VITALS: TEMP 97.1
[2020-06-30] MEDS: NICOTINE 7 MG/24 HOURS TOPICAL PATCH TD SCH (10:47)
[2020-06-30] MEDS: PRENATAL VITAMINS W/ FOLIC ACID TABLET (FP) PO SCH (10:47)
[2020-06-30] MEDS: SERTRALINE HCL 50 MG TABLET (FP) PO SCH (10:47)
[2020-06-30] MEDS: METHOCARBAMOL 500 MG TABLET PO PRN (10:49)
--- NOTE | 2020-06-30 12:04 | PN ---
S CIWA - CIWA Score Nausea/Vomitin-No Nausea/No Vomiting Muscle Tremors: 1-None Visible, but [place] Anxiety: 2 Agitation: 0-Normal Activity Paroxysmal Sweats: 2 Orientation: 0-Oriented Tacttile Disturbances: 0-None Auditory Disturbances: 0-None Visual Disturbances: 0-None Headache: 0-None Present CIWA-Ar Total Score: 5 BHS Progress Note (SOAP) Subjective: c/o mild withdrawal symptoms. Objective: 06/30/20 12:03 Vital Signs 06/30/20 06/30/20 06:35 08:41 Temperature 97.3 F L 97.1 F L Pulse Rate 72 72 Respiratory 18 16 Rate Blood Pressure 118/76 109/72 O2 Sat by Pulse 99 Oximetry (%) Laboratory Last Values WBC 5.0 K/mm3 (4.0-10.0) 06/27/20 08:00 RBC 5.24 M/mm3 (4.00-5.60) 06/27/20 08:00 Hgb 14.6 GM/dL (11.7-16.9) 06/27/20 08:00 Hct 43.0 % (35.4-49) 06/27/20 08:00 MCV 82.0 fl (80-96) 06/27/20 08:00 MCH 27.9 pg (25.7-33.7) 06/27/20 08:00 MCHC 34.1 g/dl (32.0-35.9) 06/27/20 08:00 RDW 14.7 % (11.9-15.9) 06/27/20 08:00 Plt Count 173 K/MM3 (134-434) 06/27/20 08:00 MPV 8.8 fl (7.5-11.1) 06/27/20 08:00 Sodium 140 mmol/L (136-145) 06/27/20 08:00 Potassium 4.5 mmol/L (3.5-5.1) 06/27/20 08:00 Chloride 105 mmol/L (98-107) 06/27/20 08:00 Carbon Dioxide 32 mmol/L (21-32) 06/27/20 08:00 Anion Gap 3 MMOL/L (8-16) L 06/27/20 08:00 BUN 15.0 mg/dL (7-18) 06/27/20 08:00 Creatinine 0.7 mg/dL (0.55-1.3) 06/27/20 08:00 Est GFR (CKD-EPI)AfAm 149.90 06/27/20 08:00 Est GFR (CKD-EPI)NonAf 129.33 06/27/20 08:00 Random Glucose 85 mg/dL (74-106) 06/27/20 08:00 Calcium 9.1 mg/dL (8.5-10.1) 06/27/20 08:00 Total Bilirubin 0.7 mg/dL (0.2-1) 06/27/20 08:00 AST 19 U/L (15-37) 06/27/20 08:00 ALT 30 U/L (13-61) 06/27/20 08:00 Alkaline Phosphatase 74 U/L (45-117) 06/27/20 08:00 Total Protein 6.8 g/dl (6.4-8.2) 06/27/20 08:00 Albumin 3.6 g/dl (3.4-5.0) 06/27/20 08:00 Syphilis Serology Non-reactive (NONREACTIVE) 06/27/20 08:00 COVID-19 ([facility]) Not detected (Not Detected) 06/26/20 Unknown Labs noted. Assessment: 06/30/20 12:04 AOX3, in no acute respiratory distress. Full ROM, ambulating in the unit. Mild Withdrawal symptoms. Plan: continue detox. D/C in AM.
[2020-06-30 13:15] VITALS: BP 131/77; PULSE 90
--- NOTE | 2020-06-30 14:50 | DS ---
[facility] Detox Discharge Summary Admission Date: 06/26/20 Discharge Date: 06/30/20 - History Present History: Alcohol Dependence, Cocaine Dependence, Opioid Dependence Additional Comments: Pt is medically cleared and discharged today. Pt completed the detox protocol. Pt is encouraged to follow-up with an outpatient CD program and also to follow- up with his pmd which he verbalized understanding. Pt is AOX3, in no acute respiratory distress, Full ROM, and ambulatory. Pertinent Past History: h/o alcohol, heroin, and cocaine use disorder. - Physical Exam Results Vital Signs: Vital Signs Temperature 97.1 F L 06/30/20 12:29 Pulse Rate 90 06/30/20 12:29 Respiratory Rate 18 06/30/20 12:29 Blood Pressure 131/77 06/30/20 12:29 O2 Sat by Pulse Oximetry (%) 100 06/30/20 12:29 Vital Signs 06/30/20 06/30/20 08:41 12:29 Temperature 97.1 F L 97.1 F L Pulse Rate 72 90 Respiratory 16 18 Rate Blood Pressure 109/72 131/77 O2 Sat by Pulse 100 Oximetry (%) Laboratory Last Values WBC 5.0 K/mm3 (4.0-10.0) 06/27/20 08:00 RBC 5.24 M/mm3 (4.00-5.60) 06/27/20 08:00 Hgb 14.6 GM/dL (11.7-16.9) 06/27/20 08:00 Hct 43.0 % (35.4-49) 06/27/20 08:00 MCV 82.0 fl (80-96) 06/27/20 08:00 MCH 27.9 pg (25.7-33.7) 06/27/20 08:00 MCHC 34.1 g/dl (32.0-35.9) 06/27/20 08:00 RDW 14.7 % (11.9-15.9) 06/27/20 08:00 Plt Count 173 K/MM3 (134-434) 06/27/20 08:00 MPV 8.8 fl (7.5-11.1) 06/27/20 08:00 Sodium 140 mmol/L (136-145) 06/27/20 08:00 Potassium 4.5 mmol/L (3.5-5.1) 06/27/20 08:00 Chloride 105 mmol/L (98-107) 06/27/20 08:00 Carbon Dioxide 32 mmol/L (21-32) 06/27/20 08:00 Anion Gap 3 MMOL/L (8-16) L 06/27/20 08:00 BUN 15.0 mg/dL (7-18) 06/27/20 08:00 Creatinine 0.7 mg/dL (0.55-1.3) 06/27/20 08:00 Est GFR (CKD-EPI)AfAm 149.90 06/27/20 08:00 Est GFR (CKD-EPI)NonAf 129.33 06/27/20 08:00 Random Glucose 85 mg/dL (74-106) 06/27/20 08:00 Calcium 9.1 mg/dL (8.5-10.1) 06/27/20 08:00 Total Bilirubin 0.7 mg/dL (0.2-1) 06/27/20 08:00 AST 19 U/L (15-37) 06/27/20 08:00 ALT 30 U/L (13-61) 06/27/20 08:00 Alkaline Phosphatase 74 U/L (45-117) 06/27/20 08:00 Total Protein 6.8 g/dl (6.4-8.2) 06/27/20 08:00 Albumin 3.6 g/dl (3.4-5.0) 06/27/20 08:00 Syphilis Serology Non-reactive (NONREACTIVE) 06/27/20 08:00 COVID-19 ([facility]) Not detected (Not Detected) 06/26/20 Unknown Labs noted. Pertinent Admission Physical Exam Findings: withdrawal symptoms. - Treatment Hospital Course: Detox Protocol Followed, Detoxed Safely, Responded well, Discharged Condition Good - Medication Discharge Medications: Ambulatory Orders Docusate Sodium [Colace -] 300 mg PO HS #30 capsule 05/08/19 Mirtazapine [Remeron -] 15 mg PO HS #30 tablet 05/08/19 Methadone [Dolophine -] 125 mg PO DAILY 06/27/20 - Diagnosis (1) Alcohol use disorder, mild, abuse Current Visit: Yes Status: Chronic (2) Methadone maintenance therapy patient Current Visit: Yes Status: Chronic (3) Nicotine dependence, uncomplicated Current Visit: Yes Status: Chronic Qualifiers: Nicotine product type: cigarettes Qualified Code(s): F17.210 - Nicotine dependence, cigarettes, uncomplicated (4) Alcohol withdrawal Current Visit: Yes Status: Acute - AMA Did Patient Leave Against Medical Advice: No
[2020-07-01] MEDS ORDERED: chlordiazePOXIDE HCL 10 MG CAPSULE PO ONE (05:00)
== END 2020-06-30 14:53 | disposition home or self-care (01) | DRG 773 ==
LOC: YASAS 14:34 → Y3N 18:19
PROVIDERS: ADMIT Allergy & Immunology; ATTEND Allergy & Immunology
PROC: HZ2ZZZZ Detoxification Services for Substance Abuse Treatment (ICD-10-PCS; principal; 2020-06-26)
DX: F10.230 Alcohol dependence with withdrawal, uncomplicated (principal); F11.20 Opioid dependence, uncomplicated; F14.20 Cocaine dependence, uncomplicated; F17.210 Nicotine dependence, cigarettes, uncomplicated; F19.282 Other psychoactive substance dependence with psychoactive substance-induced sleep disorder; F84.0 Autistic disorder; F32.9 Major depressive disorder, single episode, unspecified; G40.909 Epilepsy, unspecified, not intractable, without status epilepticus; Z56.0 Unemployment, unspecified; Z59.0 Homelessness
CPT/HCPCS: 36415; 80053; 85027; 86780; U0003

== ENCOUNTER 2020-07-02 08:45 | Inpatient (IN) | payer OTHER ==
--- NOTE | 2020-07-02 08:57 | BHS.RME ---
Substance Use & Tx History - Substance Use History Alcohol Substance amount: 6 pack beers Frequency of use: Daily Substance route: Oral Date of Last Use: 06/26/20 Heroin Substance amount: 1-2 bags Frequency of use: Daily Substance route: Inhalation (ex: sniffing or snorting) Date of Last Use: 06/25/20 Cocaine- Powder Substance amount: $10 Frequency of use: Daily Substance route: Inhalation (ex: sniffing or snorting) Date of Last Use: 06/25/20 Nicotine Substance amount: 1/2 pack Frequency of use: Daily Substance route: Smoking Date of Last Use: 06/25/20 - Last Treatment Date of last treatment: 06/26-06/30/20 Treatment type: Substance Use Disorder ([place]) Where was last treatment: Detox Physical/Psych/Mental Status - Behavior General Behavior: Increased activity (restlessness, agitation) Eye Contact: Normal - Cooperativeness Cooperativeness: Cooperative - Thinking Thought Processes: Tight, Logical, Goal Directed - Physical Health Problems Is patient presently having any pain?: No Does patient presently have any injuries (include location): No Does patient currently have a fever: No Is patient : No CIWA Nausea/Vomitin-No Nausea/No Vomiting Muscle Tremors: None Anxiety: 0-No Anxiety, at Ease Agitation: 0-Normal Activity Paroxysmal Sweats: No Perspiration Orientation: 0-Oriented Tacttile Disturbances: 0-None Auditory Disturbances: 0-None Visual Disturbances: 0-None
[2020-07-02 09:08] VITALS: BMI 23.5
--- NOTE | 2020-07-02 12:25 | HP ---
CIWA Score Nausea/Vomitin-No Nausea/No Vomiting Muscle Tremors: None Anxiety: 0-No Anxiety, at Ease Agitation: 0-Normal Activity Paroxysmal Sweats: No Perspiration Orientation: 0-Oriented Tacttile Disturbances: 0-None Auditory Disturbances: 0-None Visual Disturbances: 0-None - Admission Criteria OASAS Guidelines: Admission for Medically Managed Detox: Requires at least one of the followin. CIWA greater than 12 2. Seizures within the past 24 hours 3. Delirium tremens within the past 24 hours 4. Hallucinations within the past 24 hours 5. Acute intervention needed for co occurring medical disorder 6. Acute intervention needed for co occurring psychiatric disorder 7. Severe withdrawal that cannot be handled at a lower level of care (continued vomiting, continued diarrhea, abnormal vital signs) requiring intravenous medication and/or fluids 8. Admitting History and Physical - Admission Chief Complaint: Mr. Tao is a 29 yo man who returns to [facility] for admission to rehab after completing detox for alcohol use disorder 2 days ago. History of Present Illness: Mr. Tao is a 29 yo man who returns to [facility] for admission to rehab after completing detox for alcohol use disorder 2 days ago. There were no rehab beds available upon discharge and he was sent to the [facility] where he has stayed since discharge. PMH: Epilepsy, first seizure 2014, visual aura then generalized seizure with tonic clonic movements or staring spells. Last seizure was on . He has been treated in [place] with Dilantin which caused unsteadiness and was stopped. Additionally, Keppra made him develop emotional lability and it was stopped. He has not established care for his epilepsy since coming to [place] (moved here 3 years ago). Av seizures per year. Hx autism ? PSH: teet extraction Psych: anxiety, depression. Psych hospitalization age 20y after the use of Bath Salts caused "paranoid psychosis". 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 Heroin Substance amount: 1-2 bags Frequency of use: Daily Substance route: Inhalation (ex: sniffing or snorting) Date of Last Use: 06/25/20 No ODs No Narcan at home Cocaine- Powder Substance amount: $10 Frequency of use: Daily Substance route: Inhalation (ex: sniffing or snorting) Date of Last Use: 06/25/20 Nicotine Substance amount: 1/2 pack Frequency of use: Daily Substance route: Smoking Date of Last Use: 06/25/20 Xanax: has been prescribed - Last Treatment Date of last treatment: 06/26-06/30/20 Treatment type: Substance Use Disorder ([place]) Where was last treatment: Detox Juan Carlos Tao, 1990 Search Date: 07/02/2020 12:26:38 PM The Drug Utilization Report below displays all of the controlled substance prescriptions, if any, that your patient has filled in the last twelve months. T he information displayed on this report is compiled from pharmacy submissions to the Department, and accurately reflects the information as submitted by the pharmacies. This report was requested by: Wanda Anderson | Reference #: [id number] Others' Prescriptions Patient Name: Juan Carlos Tao Date: 1990 Address: [address] [place] [address] [id number] [address] Sex: Male Rx Written Rx Dispensed Drug Quantity Days Supply Prescriber Name 06/25/2020 06/25/2020 alprazolam 2 mg tablet 30 15 LaruelGrayson gomez MD 06/07/2020 06/20/2020 dextroamp-amphetamin 20 mg tab 30 30 LaruelleGrayson MD 06/08/2020 06/08/2020 dextroamp-amphetamin 30 mg tab 15 15 LaruelGrayson gomez MD 06/07/2020 06/07/2020 temazepam 30 mg capsule 30 30 LaruelleGrayson MD 06/07/2020 06/07/2020 lorazepam 2 mg tablet 60 30 LaruelleGrayson MD 05/24/2020 05/24/2020 dextroamp-amphetamin 20 mg tab 30 30 LaruelleGrayson MD 05/21/2020 05/21/2020 zolpidem tartrate 10 mg tablet 15 15 LaruelleGrayson MD 05/09/2020 05/09/2020 clonazepam 1 mg tablet 60 30 LaruelleGrayson MD 05/08/2020 05/08/2020 temazepam 30 mg capsule 30 30 LaruelleGrayson MD 05/08/2020 05/08/2020 lorazepam 1 mg tablet 60 30 Grayson Dowell MD 04/24/2020 04/26/2020 temazepam 22.5 mg capsule 5 5 Grayson Dowell MD 04/24/2020 04/24/2020 lorazepam 1 mg tablet 32 16 Grayson Dowell MD History Source: Patient Limitations to Obtaining History: No Limitations - Smoking History Smoking history: Current every day smoker Have you smoked in the past 12 months: Yes Aproximately how many cigarettes per day: 10 - Alcohol/Substance Use Hx Alcohol Use: No Admission ROS [facility] - [facility] Allergies/Adverse Reactions: Allergies Allergy/AdvReac Type Severity Reaction Status Date / Time No Known Allergies Allergy Verified 07/02/20 12:09 Exam Limitations: No Limitations - Ebola screening Have you traveled outside of the country in the last 21 days: No Have you been sick,other than usual withdrawal symptoms: No Do you have a fever: No - Review of Systems Constitutional: Changes in sleep, Other (slight weight gain) EENT: reports: No Symptoms Reported Respiratory: reports: No Symptoms reported Cardiac: reports: No Symptoms Reported GI: reports: Diarrhea : reports: No Symptoms Reported Musculoskeletal: reports: Back Pain (scoliosis) Integumentary: reports: No Symptoms Reported Neuro: reports: No Symptoms reported Endocrine: reports: No Symptoms Reported Hematology: reports: No Symptoms Reported Psychiatric: reports: Anxious Patient History - Patient Medical History Hx Asthma: No Hx Chronic Obstructive Pulmonary Disease (COPD): No Hx Cardiac Disorders: No Hx Hypertension: No Hx Seizures: Yes (seizure disorder last 3 weeks ago) Hx Diabetes: No Hx Gastrointestinal Disorders: No Hx Genitourinary Disorders: No Hx Sexually Transmitted Disorders: No Hx Renal Disease (ESRD): No Hx Depression: Yes Hx Suicide Attempt: No Hx Schizophrenia: No - Patient Surgical History Past Surgical History: No Hx Neurologic Surgery: No Hx Cataract Extraction: No Hx Cardiac Surgery: No Hx Lung Surgery: No Hx Breast Surgery: No Hx Breast Biopsy: No Hx Abdominal Surgery: No Hx Appendectomy: No Hx Cholecystectomy: No Hx Genitourinary Surgery: No Hx Section: No Hx Orthopedic Surgery: No Anesthesia Reaction: No - PPD History Previous Implant?: Yes Documented Results: Negative w/proof Implanted On Prior [facility] Admission?: Yes Date: 06/28/20 Results: 0 mm - Smoking Cessation Smoking history: Current every day smoker Have you smoked in the past 12 months: Yes Aproximately how many cigarettes per day: 10 Hx Chewing Tobacco Use: No Initiated information on smoking cessation: Yes 'Breaking Loose' booklet given: 07/02/20 Admission Physical Exam [facility] - Vital Signs Vital Signs: Vital Signs - 24 hr 07/02/20 09:07 Temperature 97.8 F Pulse Rate 85 Respiratory 16 Rate Blood Pressure 131/90 - Physical General Appearance: Yes: No Apparent Distress, Nourished, Appropriately Dressed HEENTM: Yes: EOMI, Hearing grossly Normal, Normocephalic, Normal Voice Respiratory: Yes: Lungs Clear, Normal Breath Sounds Neck: Yes: Within Normal Limits, Supple Breast: Yes: Breast Exam Deferred Cardiology: Yes: Regular Rhythm, Regular Rate Abdominal: Yes: Normal Bowel Sounds, Flat, Soft, Tenderness (mild upper abdomen) Genitourinary: Yes: Other Back: Yes: Other (acne) Musculoskeletal: Yes: Gait Steady Extremities: Yes: Normal Inspection, Non-Tender Neurological: Yes: Alert, Normal Response Integumentary: Yes: Normal Color, Dry, Warm - Diagnostic (1) Partial epilepsy secondarily generalized Current Visit: No Status: Chronic (2) Alcohol use disorder, mild, abuse Current Visit: Yes Status: Chronic (3) Methadone maintenance therapy patient Current Visit: Yes Status: Chronic (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 Current Visit: Yes Status: Chronic (5) Nicotine dependence, uncomplicated Current Visit: Yes Status: Chronic Qualifiers: Nicotine product type: cigarettes Qualified Code(s): F17.210 - Nicotine dep endence, cigarettes, uncomplicated Comment: Vapes Cleared for Admission [facility] - Detox or Rehab [facility] Level of Care: Medically Supervised Breathalyzer - Breathalyzer Breathalyzer: 0 Urine Drug Screen - Test Device Lot number: [id number] Expiration date: 01/10/22 - Control Is test valid?: Yes - Results Drug screen NEGATIVE: No Urine drug screen results: VAN-Cocaine, FEN-Fentanyl, MOP-Opiates, MTD- Methadone, BZO-Benzodiazepines Inpatient Rehab Admission - Rehab Decision to Admit Inpatient rehab admission?: Yes - Initial Determination Are CD services needed?: Yes Free of communicable disease: Yes Not in need of hospitalization: Yes - Rehab Admission Criteria Previous failed treatment: Yes Poor recovery environment: Yes Comorbidities: Yes Lacks judgement: Yes Patient is meeting Inpatient Rehab admission criteria:: Yes
[2020-07-02] MEDS ORDERED: guaiFENesin 200 MG/10 ML 10 ML UNIT-DOSE CUPS PO PRN (12:42)
[2020-07-02] MEDS ORDERED: P-EPHED 60MG/TRIPROLIDI 2.5MG TABLET PO PRN (12:42)
[2020-07-02] MEDS ORDERED: MAGNESIUM HYDROX 2400MG/30ML ORAL SUSPENSION 30 ML CUP PO PRN (12:42)
[2020-07-02] MEDS ORDERED: MAG HYDROX/AL HYDROX/SIMETH 30 ML UNIT-DOSE CUP PO PRN (12:42)
[2020-07-02] MEDS ORDERED: ACETAMINOPHEN 325 MG TABLET (FP) PO PRN (12:42)
[2020-07-02] MEDS ORDERED: LOPERAMIDE HCL 2 MG CAPSULE PO PRN (12:42)
[2020-07-02] MEDS ORDERED: MAGNESIUM CITRATE 300 ML BOTTLE PO PRN (12:42)
[2020-07-02] MEDS ORDERED: METHADONE HCL 40 MG DISPERSABLE TABLET PO SCH (12:45)
[2020-07-02] MEDS ORDERED: METHADONE HCL 40 MG DISPERSABLE TABLET ONE (14:12)
[2020-07-02] MEDS ORDERED: METHADONE HCL 5 MG TABLET ONE (14:12)
[2020-07-02] MEDS: METHADONE 120 MG, METHADONE 5 MG PO SCH (14:13)
[2020-07-02] MEDS: SERTRALINE HCL 50 MG TABLET (FP) PO SCH (14:13)
[2020-07-02] MEDS: NICOTINE 14 MG/24 HOURS TOPICAL PATCH TD SCH (14:14)
[2020-07-02] MEDS: NICOTINE POLACRILEX 2 MG GUM BUC PRN (14:16)
[2020-07-02] MEDS: hydrOXYzine PAMOATE 25 MG CAPSULE (FP) PO SCH ×3 (14:37→21:14)
[2020-07-02] MEDS: THIAMINE HCL 100 MG TABLET (FP) PO SCH (21:11)
[2020-07-02] MEDS: MELATONIN 5 MG TABLETS PO SCH (21:13)
[2020-07-02] MEDS: DOCUSATE SODIUM 100 MG CAPSULE (FP) PO SCH (21:13)
[2020-07-02] MEDS: MIRTAZAPINE 15 MG TABLET (FP) PO SCH (21:13)
[2020-07-03] MEDS: hydrOXYzine PAMOATE 25 MG CAPSULE (FP) PO SCH ×5 (06:28→21:21)
[2020-07-03] MEDS ORDERED: METHADONE HCL 5 MG TABLET ONE (08:55)
[2020-07-03] MEDS ORDERED: METHADONE HCL 40 MG DISPERSABLE TABLET ONE (08:55)
[2020-07-03] MEDS: METHADONE 120 MG, METHADONE 5 MG PO SCH (09:12)
[2020-07-03] MEDS: PRENATAL VITAMINS W/ FOLIC ACID TABLET (FP) PO SCH (09:12)
[2020-07-03] MEDS: SERTRALINE HCL 50 MG TABLET (FP) PO SCH (09:12)
[2020-07-03] MEDS: NICOTINE 14 MG/24 HOURS TOPICAL PATCH TD SCH (09:12)
[2020-07-03 11:04] LABS: ALBUMIN 3.4 g/dl (3.4-5.0); BILIRUBIN,TOTAL 0.3 mg/dL (0.2-1); BLOOD UREA NITROGEN 13.5 mg/dL (7-18); CALCIUM 8.9 mg/dL (8.5-10.1); CREATININE 0.8 mg/dL (0.55-1.3); POTASSIUM 5.1 mmol/L (3.5-5.1); TOT PROT 6.6 g/dl (6.4-8.2)
[2020-07-03] MEDS: THIAMINE HCL 100 MG TABLET (FP) PO SCH (21:21)
[2020-07-03] MEDS: MIRTAZAPINE 15 MG TABLET (FP) PO SCH (21:21)
[2020-07-03] MEDS: DOCUSATE SODIUM 100 MG CAPSULE (FP) PO SCH (21:21)
[2020-07-03] MEDS: MELATONIN 5 MG TABLETS PO SCH (21:21)
[2020-07-04] MEDS: hydrOXYzine PAMOATE 25 MG CAPSULE (FP) PO SCH ×5 (06:09→21:19)
[2020-07-04] MEDS ORDERED: METHADONE HCL 40 MG DISPERSABLE TABLET ONE (08:48)
[2020-07-04] MEDS ORDERED: METHADONE HCL 5 MG TABLET ONE (08:49)
[2020-07-04] MEDS: SERTRALINE HCL 50 MG TABLET (FP) PO SCH (09:27)
[2020-07-04] MEDS: METHADONE 120 MG, METHADONE 5 MG PO SCH (09:27)
[2020-07-04] MEDS: PRENATAL VITAMINS W/ FOLIC ACID TABLET (FP) PO SCH (09:27)
[2020-07-04] MEDS: NICOTINE 14 MG/24 HOURS TOPICAL PATCH TD SCH (09:27)
[2020-07-04] MEDS: NICOTINE POLACRILEX 2 MG GUM BUC PRN ×2 (14:15→21:22)
[2020-07-04] MEDS: MIRTAZAPINE 15 MG TABLET (FP) PO SCH (21:19)
[2020-07-04] MEDS: DOCUSATE SODIUM 100 MG CAPSULE (FP) PO SCH (21:19)
[2020-07-04] MEDS: MELATONIN 5 MG TABLETS PO SCH (21:20)
[2020-07-04] MEDS: THIAMINE HCL 100 MG TABLET (FP) PO SCH (21:20)
[2020-07-05] MEDS ORDERED: MASKS NR ONE (06:04)
[2020-07-05] MEDS: hydrOXYzine PAMOATE 25 MG CAPSULE (FP) PO SCH ×5 (06:33→21:06)
[2020-07-05] MEDS ORDERED: METHADONE HCL 40 MG DISPERSABLE TABLET ONE (08:44)
[2020-07-05] MEDS ORDERED: METHADONE HCL 5 MG TABLET ONE (08:45)
[2020-07-05] MEDS: SERTRALINE HCL 50 MG TABLET (FP) PO SCH (09:52)
[2020-07-05] MEDS: PRENATAL VITAMINS W/ FOLIC ACID TABLET (FP) PO SCH (09:52)
[2020-07-05] MEDS: METHADONE 120 MG, METHADONE 5 MG PO SCH (09:52)
[2020-07-05] MEDS: NICOTINE 14 MG/24 HOURS TOPICAL PATCH TD SCH (09:53)
[2020-07-05] MEDS: NICOTINE POLACRILEX 2 MG GUM BUC PRN (14:51)
[2020-07-05] MEDS: MELATONIN 5 MG TABLETS PO SCH (21:06)
[2020-07-05] MEDS: THIAMINE HCL 100 MG TABLET (FP) PO SCH (21:06)
[2020-07-05] MEDS: DOCUSATE SODIUM 100 MG CAPSULE (FP) PO SCH (21:06)
[2020-07-05] MEDS: MIRTAZAPINE 15 MG TABLET (FP) PO SCH (21:06)
[2020-07-06] MEDS ORDERED: METHADONE HCL 40 MG DISPERSABLE TABLET ONE (05:57)
[2020-07-06] MEDS ORDERED: METHADONE HCL 5 MG TABLET ONE (05:57)
[2020-07-06] MEDS: METHADONE 120 MG, METHADONE 5 MG PO SCH (06:06)
[2020-07-06] MEDS: hydrOXYzine PAMOATE 25 MG CAPSULE (FP) PO SCH ×5 (06:06→21:10)
[2020-07-06] MEDS: SERTRALINE HCL 50 MG TABLET (FP) PO SCH (09:54)
[2020-07-06] MEDS: NICOTINE 14 MG/24 HOURS TOPICAL PATCH TD SCH (09:54)
[2020-07-06] MEDS: PRENATAL VITAMINS W/ FOLIC ACID TABLET (FP) PO SCH (09:54)
--- NOTE | 2020-07-06 10:34 | PN ---
[facility] Progress Note Note: Vital Signs Temperature 97.1 F L 07/06/20 06:07 Pulse Rate 83 07/06/20 06:07 Respiratory Rate 18 07/06/20 06:07 Blood Pressure 126/81 07/06/20 06:07 O2 Sat by Pulse Oximetry (%) 98 07/06/20 06:07 Laboratory Tests 07/02/20 07/03/20 09:25 07:15 Sodium 142 Potassium 5.1 Chloride 107 Carbon Dioxide 28 Anion Gap 8 BUN 13.5 Creatinine 0.8 Est GFR (CKD-EPI)AfAm 141.89 Est GFR (CKD-EPI)NonAf 122.43 Random Glucose 98 Calcium 8.9 Total Bilirubin 0.3 AST 61 H ALT 163 H Alkaline Phosphatase 116 Total Protein 6.6 Albumin 3.4 SARS-CoV-2 (PCR) Negative Labs appreciated. Patient admitted to rehab for alcohol dependence. Oral fluids encouraged. Will repeat CMP on 07/10/2020. APAP d/c.
[2020-07-06] MEDS: IBUPROFEN 400 MG TABLET (FP) PO PRN ×2 (11:56→18:08)
[2020-07-06] MEDS: THIAMINE HCL 100 MG TABLET (FP) PO SCH (21:09)
[2020-07-06] MEDS: MIRTAZAPINE 15 MG TABLET (FP) PO SCH (21:09)
[2020-07-06] MEDS: DOCUSATE SODIUM 100 MG CAPSULE (FP) PO SCH (21:09)
[2020-07-06] MEDS: MELATONIN 5 MG TABLETS PO SCH (21:09)
[2020-07-07] MEDS ORDERED: METHADONE HCL 5 MG TABLET ONE (03:29)
[2020-07-07] MEDS ORDERED: METHADONE HCL 40 MG DISPERSABLE TABLET ONE (03:29)
[2020-07-07] MEDS: hydrOXYzine PAMOATE 25 MG CAPSULE (FP) PO SCH ×5 (06:13→21:24)
[2020-07-07] MEDS: METHADONE 120 MG, METHADONE 5 MG PO SCH (06:13)
[2020-07-07] MEDS: NICOTINE 14 MG/24 HOURS TOPICAL PATCH TD SCH (09:38)
[2020-07-07] MEDS: SERTRALINE HCL 50 MG TABLET (FP) PO SCH (09:38)
[2020-07-07] MEDS: PRENATAL VITAMINS W/ FOLIC ACID TABLET (FP) PO SCH (09:38)
[2020-07-07] MEDS: NICOTINE POLACRILEX 2 MG GUM BUC PRN ×2 (09:39→14:53)
[2020-07-07] MEDS: IBUPROFEN 400 MG TABLET (FP) PO PRN (21:24)
[2020-07-07] MEDS: MIRTAZAPINE 15 MG TABLET (FP) PO SCH (21:24)
[2020-07-07] MEDS: MELATONIN 5 MG TABLETS PO SCH (21:24)
[2020-07-07] MEDS: DOCUSATE SODIUM 100 MG CAPSULE (FP) PO SCH (21:24)
[2020-07-07] MEDS: THIAMINE HCL 100 MG TABLET (FP) PO SCH (21:24)
[2020-07-08] MEDS ORDERED: METHADONE HCL 40 MG DISPERSABLE TABLET ONE (03:40)
[2020-07-08] MEDS ORDERED: METHADONE HCL 5 MG TABLET ONE (03:40)
[2020-07-08] MEDS: METHADONE 120 MG, METHADONE 5 MG PO SCH (06:16)
[2020-07-08] MEDS: hydrOXYzine PAMOATE 25 MG CAPSULE (FP) PO SCH ×5 (06:16→21:10)
[2020-07-08] MEDS: NICOTINE 14 MG/24 HOURS TOPICAL PATCH TD SCH (09:52)
[2020-07-08] MEDS: PRENATAL VITAMINS W/ FOLIC ACID TABLET (FP) PO SCH (09:52)
[2020-07-08] MEDS: SERTRALINE HCL 50 MG TABLET (FP) PO SCH (09:52)
[2020-07-08] MEDS: NICOTINE POLACRILEX 2 MG GUM BUC PRN (12:39)
[2020-07-08] MEDS: THIAMINE HCL 100 MG TABLET (FP) PO SCH (21:10)
[2020-07-08] MEDS: MIRTAZAPINE 15 MG TABLET (FP) PO SCH (21:10)
[2020-07-08] MEDS: DOCUSATE SODIUM 100 MG CAPSULE (FP) PO SCH (21:10)
[2020-07-08] MEDS: MELATONIN 5 MG TABLETS PO SCH (21:10)
[2020-07-09] MEDS ORDERED: METHADONE HCL 40 MG DISPERSABLE TABLET ONE (03:17)
[2020-07-09] MEDS ORDERED: METHADONE HCL 5 MG TABLET ONE (03:18)
[2020-07-09] MEDS: hydrOXYzine PAMOATE 25 MG CAPSULE (FP) PO SCH ×2 (06:10→09:46)
[2020-07-09] MEDS: METHADONE 120 MG, METHADONE 5 MG PO SCH (06:10)
[2020-07-09 06:48] VITALS: BP 142/86; PULSE 86; TEMP 97.6
[2020-07-09] MEDS: PRENATAL VITAMINS W/ FOLIC ACID TABLET (FP) PO SCH (09:45)
[2020-07-09] MEDS: SERTRALINE HCL 50 MG TABLET (FP) PO SCH (09:45)
--- NOTE | 2020-07-09 12:07 | DS ---
[facility] Rehab Discharge Summary - [facility] Rehab Discharge Summary Admission Date: 07/02/20 Discharge Date: 07/09/20 - History Present History: Alcohol dependence, Cocaine dependence, MMTP - Discharge Physical Exam Vital Signs: Vital Signs Temperature 97.6 F 07/09/20 06:05 Pulse Rate 86 07/09/20 06:05 Respiratory Rate 18 07/09/20 06:05 Blood Pressure 142/86 07/09/20 06:05 O2 Sat by Pulse Oximetry (%) 98 07/09/20 06:05 ros: denies opiod/alcohol cravings, body aches and sweats. pe: alert and oriented x 3 skin warm, dry. skin color pale in nad ext full rom, amb ad josé miguel no visible tremors no si/hi a/p: mmtp alcohol/cocaine dependence patient is medically stable for discharge aftercare arranged for - Treatment Discharge Condition: Discharge condition good, Outpatient referral accepted Hospital Course: PATIENT DISCHARGE FROM REHAB TODAY FOR ALCOHOL/COCAINE DEPENDENCE. HE IS MEDICALLY STABLE AND DENIES SI/HI. PATIENT IS ON MTD MAINTENANCE AND AFTERCARE ARRANGED FOR [facility] OTP FOR 07/10/2020 AT 6:30AM AND [facility] 07/10/2020 AT 10AM. DURING COURSE OF TREATMENT, PATIENT ATTENDED GROUP MEETINGS AND 1:1 SESSIONS WITH COUNSELING STAFF. MEDICALLY ADVISED TO CONTINUE WITH OTP AND PCP RECOMMENDED TO PREVENT RELAPSE. Ambulatory Orders Docusate Sodium [Colace -] 300 mg PO HS #30 capsule 05/08/19 Mirtazapine [Remeron -] 15 mg PO HS #30 tablet 05/08/19 Methadone [Dolophine -] 125 mg PO DAILY 06/27/20 Naloxone HCl [Narcan] 4 mg NS PRN #1 spray 07/09/20 - Medication Discharge Medications: Ambulatory Orders Docusate Sodium [Colace -] 300 mg PO HS #30 capsule 05/08/19 Mirtazapine [Remeron -] 15 mg PO HS #30 tablet 05/08/19 Methadone [Dolophine -] 125 mg PO DAILY 06/27/20 Naloxone HCl [Narcan] 4 mg NS PRN #1 spray 07/09/20 - Medication-Assisted Treatment (MAT) Medication-Assisted Treatment (MAT): Yes MAT Follow-up Referral: [facility] MMTP, APPT 07/10/2020 AT 6:30AM, [facility] 07/10/2020 10AM - Discharge Instructions Diet, activity, other medical instructions: Diet: REG TOLERATED Activity: AMB AD JOSÉ MIGUEL TOLERATED Other medical instructions: F/U WITH PCP RECOMMENDED - Follow-up Referral Minutes to complete discharge: 35 - AMA Did Patient Leave Against Medical Advice: No
== END 2020-07-09 09:50 | disposition home or self-care (01) | DRG 772 ==
LOC: YASAS 08:45 → Y3W 12:08
PROVIDERS: ADMIT Allergy & Immunology; ATTEND Allergy & Immunology
PROC: HZ42ZZZ Group Counseling for Substance Abuse Treatment, Cognitive-Behavioral (ICD-10-PCS; principal; 2020-07-02)
DX: F10.20 Alcohol dependence, uncomplicated (principal); F14.20 Cocaine dependence, uncomplicated; F11.20 Opioid dependence, uncomplicated; F17.210 Nicotine dependence, cigarettes, uncomplicated; F13.21 Sedative, hypnotic or anxiolytic dependence, in remission; F32.9 Major depressive disorder, single episode, unspecified; G40.409 Other generalized epilepsy and epileptic syndromes, not intractable, without status epilepticus; Z56.0 Unemployment, unspecified; Z59.0 Homelessness
CPT/HCPCS: 36415; 80053; U0003

== ENCOUNTER 2024-06-14 22:12 | Inpatient (IN) | payer OTHER ==
[2024-06-14 22:41] VITALS: BMI 23.5
[2024-06-14] MEDS ORDERED: BENZONATATE 200 MG CAPSULE PO PRN (23:06)
[2024-06-14] MEDS ORDERED: DICYCLOMINE HCL 10 MG CAPSULE PO PRN (23:06)
[2024-06-14] MEDS ORDERED: NALOXONE (NARCAN) HCL 4 MG/0.1 ML SPRAY NS PRN (23:06)
[2024-06-14] MEDS ORDERED: IBUPROFEN 600 MG TABLET (FP) PO PRN (23:06)
[2024-06-14] MEDS ORDERED: LOPERAMIDE HCL 2 MG CAPSULE PO PRN (23:06)
[2024-06-14] MEDS ORDERED: guaiFENesin 600 MG TABLET.ER (FP) PO PRN (23:06)
[2024-06-14] MEDS ORDERED: NALOXONE HCL 0.4 MG/ML VIAL IM PRN (23:06)
[2024-06-14] MEDS ORDERED: BISMUTH SUBSALICYLATE 524 MG/30 ML PO PRN (23:06)
[2024-06-14] MEDS ORDERED: MAG HYDROX/AL HYDROX/SIMETH 30 ML UNIT-DOSE CUP PO PRN (23:06)
[2024-06-14] MEDS ORDERED: BENZOCAINE/MENTHOL (CHLORASEPTIC ) LOZENGE MM PRN (23:06)
[2024-06-14] MEDS ORDERED: chlordiazePOXIDE HCL 25 MG CAPSULE PO PRN (23:10)
[2024-06-14] MEDS ORDERED: chlordiazePOXIDE HCL 25 MG CAPSULE ONE (23:39)
[2024-06-14] MEDS ORDERED: cloNIDine HCL 0.1 MG TABLET ONE (23:39)
[2024-06-14] MEDS: chlordiazePOXIDE HCL 25 MG CAPSULE PO SCH (23:43)
[2024-06-14] MEDS: cloNIDine HCL 0.1 MG TABLET PO ONE (23:45)
[2024-06-15] MEDS: methaDONE HCL 10 MG TABLET PO SCH (09:11)
[2024-06-15] MEDS: NICOTINE 14 MG/24 HOURS TOPICAL PATCH TD SCH (10:27)
[2024-06-15] MEDS: PRENATAL VITAMINS W/ FOLIC ACID TABLET (FP) PO SCH (10:27)
[2024-06-15] MEDS: diazePAM 5 MG TABLET PO SCH (11:16)
[2024-06-15 12:14] LABS: HEMATOCRIT 41.2 % (35.4-49); MCH 26.8 pg (25.7-33.7); MCHC 33.9 g/dl (32.0-35.9); PLATELET COUNT 190 10^3/uL (134-434); RBC 5.22 M/mm3 (4.00-5.60); RDW 17.5 % (11.9-15.9)
[2024-06-15 13:18] LABS: CHLORIDE 104 mmol/L (98-107); POTASSIUM 3.6 mmol/L (3.5-5.1); SODIUM 141 mmol/L (136-145)
[2024-06-15 13:31] LABS: CALCIUM 9.2 mg/dL (8.5-10.1); GLUCOSE,RANDOM 98 mg/dL (74-106)
[2024-06-15 13:32] LABS: ALBUMIN 3.9 g/dl (3.4-5.0); ALK PHOS 86 U/L (45-117); ANION GAP 10 mmol/L (4-13); BILIRUBIN,TOTAL 0.7 mg/dL (0.2-1); CO2 27 mmol/L (21-32); CREATININE 0.8 mg/dL (0.55-1.3); TOT PROT 7.2 g/dl (6.4-8.2)
[2024-06-15 13:34] LABS: SGOT/AST 31 U/L (15-37); SGPT/ALT 38 U/L (13-61)
[2024-06-15] MEDS: diazePAM 5 MG TABLET PO PRN (13:36)
[2024-06-15] MEDS: ACETAMINOPHEN 325 MG TABLET (FP) PO PRN (17:05)
[2024-06-15] MEDS: METHOCARBAMOL 500 MG TABLET PO PRN (17:07)
[2024-06-15] MEDS: MELATONIN 5 MG TABLETS PO SCH (22:16)
[2024-06-15] MEDS: MIRTAZAPINE 15 MG TABLET (FP) PO SCH (22:16)
[2024-06-15] MEDS: THIAMINE 100 MG TABLET PO SCH (22:16)
[2024-06-16] MEDS ORDERED: chlordiazePOXIDE HCL 25 MG CAPSULE PO SCH (05:00)
[2024-06-16] MEDS: NICOTINE POLACRILEX 2 MG LOZENGE BC PRN (09:43)
[2024-06-16] MEDS: diazePAM 5 MG TABLET PO SCH (17:13)
[2024-06-16] MEDS: hydrOXYzine PAMOATE 25 MG CAPSULE (FP) PO PRN (22:32)
[2024-06-17] MEDS ORDERED: chlordiazePOXIDE HCL 10 MG CAPSULE PO PRN
[2024-06-17] MEDS ORDERED: chlordiazePOXIDE HCL 10 MG CAPSULE PO SCH (05:00)
[2024-06-17] MEDS: diazePAM 5 MG TABLET PO SCH (05:42)
[2024-06-17] MEDS: ONDANSETRON *ODT* 4 MG TABLET SL PRN (13:38)
[2024-06-17] MEDS: MAGNESIUM HYDROX 2400MG/30ML ORAL SUSPENSION 30 ML CUP PO PRN (19:59)
[2024-06-17] MEDS: IBUPROFEN 400 MG TABLET (FP) PO PRN (19:59)
[2024-06-17] MEDS: POLYETHYLENE GLYCOL (HEALTHYLAX) 3350 17 GM PACKET PO PRN (21:31)
[2024-06-18] MEDS ORDERED: chlordiazePOXIDE HCL 10 MG CAPSULE PO SCH (05:00)
[2024-06-18] MEDS: diazePAM 5 MG TABLET PO SCH (05:50)
[2024-06-18] MEDS: diazePAM 5 MG TABLET PO PRN (14:18)
[2024-06-19] MEDS ORDERED: chlordiazePOXIDE HCL 10 MG CAPSULE PO ONE (05:00)
[2024-06-19] MEDS: diazePAM 5 MG TABLET PO ONE (05:45)
[2024-06-19 09:57] VITALS: PULSE 95; RESP 16; TEMP 97.7
[2024-06-19 10:36] VITALS: BP 129/80
== END 2024-06-19 11:53 | disposition other institution (70) | DRG 773 ==
LOC: YASAS 22:12 → Y3N 23:21
PROVIDERS: ADMIT Allergy & Immunology; ATTEND Surgery
PROC: HZ2ZZZZ Detoxification Services for Substance Abuse Treatment (ICD-10-PCS; principal; 2024-06-14)
DX: F10.230 Alcohol dependence with withdrawal, uncomplicated (principal); F13.230 Sedative, hypnotic or anxiolytic dependence with withdrawal, uncomplicated; F11.20 Opioid dependence, uncomplicated; F17.210 Nicotine dependence, cigarettes, uncomplicated; F19.282 Other psychoactive substance dependence with psychoactive substance-induced sleep disorder; G47.00 Insomnia, unspecified
CPT/HCPCS: 36415; 80053; 80305; 80307; 85027; 86780; 93005; 93010; Q0162